=== PATIENT | female | born 1990 | race American Indian/Alaskan Native ===

== ENCOUNTER 2017-11-28 01:42 | Emergency (ER) | payer BC, OTHER ==
[2017-11-28 03:08] VITALS: BP 135/78
[2017-11-28 03:41] LABS: Basophils % (Auto) 0.3 % (0.0-1.8); Eosinophils # (Auto) 0.1 K/mm3 (0.0-0.4); Eosinophils % (Auto) 1.1 % (0.0-4.3); Hematocrit 40.5 % (30.3-42.9); Lymphocytes # (Auto) 2.8 K/mm3 (1.2-5.4); Lymphocytes % (Auto) 33.7 % (13.4-35.0); Mean Corpuscular HGB Conc 35 % (30-34); Mean Corpuscular Hemoglobin 30 pg (28-32); Mean Corpuscular Volume 86 fl (79-97); Monocytes # (Auto) 1.1 K/mm3 (0.0-0.8); Platelet Count 232 K/mm3 (140-440); Red Blood Count 4.69 M/mm3 (3.65-5.03); Red Cell Distribution Width 13.8 % (13.2-15.2)
[2017-11-28 04:01] LABS: BUN/Creatinine Ratio 15; Blood Urea Nitrogen 9 mg/dL (7-17); Calcium 8.6 mg/dL (8.4-10.2); Hemolysis Index 13
[2017-11-28 04:10] LABS: Free T4 (Free Thyroxine) 0.85 ng/dL (0.76-1.46)
--- NOTE | 2017-11-28 06:57 | Emergency Department Report ---
ED Anxiety HPI - General Chief Complaint: Anxiety Stated Complaint: RACING HEARTC Time Seen by Provider: 11/28/17 06:48 Source: patient Mode of arrival: Ambulatory - History of Present Illness Initial Comments: Patient is 27 years old female with no significant past medical history except for an anxiety and panic attack. Patient stated that she woke up this morning with her heart racing and feeling of generalized numbness. Patient stated this is happened to her several times since her mother . She did not seek any treatment for that before. Patient stated that her symptoms completely resolved now. Patient denied any focal weakness, numbness or tingling sensation. No bowel or bladder incontinence. No headache. MD Complaint: anxiety, heart racing - Related Data Home Medications: Home Medications Medication Instructions Recorded Confirmed Last Taken Blisovi 24 Fe Tablet 07/24/16 07/24/16 Previous Rx's Medication Instructions Recorded Last Taken Type Magnesium Oxide [Magnesium] 400 mg PO QDAY #30 tablet 03/07/16 07/24/16 Rx ALPRAZolam [Xanax TAB] 0.5 mg PO TID PRN #14 tab 07/25/16 Unknown Rx Allergies/Adverse Reactions: Allergies Allergy/AdvReac Type Severity Reaction Status Date / Time No Known Allergies Allergy Unverified 09/25/13 10:57 ED Review of Systems ROS: Stated complaint: RACING HEARTC Other details as noted in HPI Comment: All other systems reviewed and negative Respiratory: denies: cough, shortness of breath Cardiovascular: chest pain (resolved), palpitations ED Past Medical Hx - Past Medical History Previous Medical History?: Yes Hx Hypertension: Yes (prehypertensive) Hx Psychiatric Treatment: (anxiety) Additional medical history: enlarged tonsils, Heart arrhythmia, - Surgical History Past Surgical History?: Yes Hx Cholecystectomy: Yes (2017) - Social History Smoking Status: Never Smoker Substance Use Type: Alcohol - Medications Home Medications: Home Medications Medication Instructions Recorded Confirmed Last Taken Type Magnesium Oxide [Magnesium] 400 mg PO QDAY #30 tablet 03/07/16 07/24/16 Rx Blisovi 24 Fe Tablet 07/24/16 07/24/16 History ALPRAZolam [Xanax TAB] 0.5 mg PO TID PRN #14 tab 07/25/16 Unknown Rx ED Physical Exam - General Limitations: No Limitations General appearance: alert, in no apparent distress - Head Head exam: Present: atraumatic, normocephalic - Eye Eye exam: Present: normal appearance - ENT ENT exam: Present: normal exam, normal orophraynx, mucous membranes moist - Neck Neck exam: Present: normal inspection, full ROM. Absent: tenderness, meningismus, lymphadenopathy, thyromegaly - Respiratory Respiratory exam: Present: normal lung sounds bilaterally. Absent: respiratory distress, wheezes, rales, rhonchi, stridor, accessory muscle use, decreased breath sounds, prolonged expiratory - Cardiovascular Cardiovascular Exam: Present: regular rate, normal rhythm, normal heart sounds - GI/Abdominal GI/Abdominal exam: Present: soft, normal bowel sounds. Absent: distended, tenderness, guarding, rebound, rigid, organomegaly, mass, bruit, pulsatile mass - Extremities Exam Extremities exam: Present: normal inspection, full ROM, normal capillary refill - Back Exam Back exam: Present: normal inspection, full ROM. Absent: tenderness, CVA tenderness (R), CVA tenderness (L), muscle spasm, paraspinal tenderness - Neurological Exam Neurological exam: Present: alert, oriented X3, CN II-XII intact, normal gait - Skin Skin exam: Present: warm, intact, normal color ED Course Vital Signs 11/28/17 11/28/17 02:40 06:37 Temperature 97.8 F Pulse Rate 99 H Respiratory 16 20 Rate Blood Pressure 135/78 O2 Sat by Pulse 100 98 Oximetry ED Medical Decision Making - Lab Data Result diagrams: 11/28/17 03:30 11/28/17 03:30 - EKG Data -: EKG Interpreted by Nd EKG shows normal: sinus rhythm Rate: normal - EKG Data Interpretation: no acute changes - Medical Decision Making I advised the patient follow up with her primary care physician for possible treatment for panic attack and inferior to a psychologist. Critical care attestation.: If time is entered above; I have spent that time in minutes in the direct care of this critically ill patient, excluding procedure time. ED Disposition Clinical Impression: Panic attack, Palpitations Disposition: DC-01 TO HOME OR SELFCARE Is pt being admited?: No Condition: Stable Instructions: Anxiety (ED) Referrals: JULIENNE GALLEGO MD [Primary Care Provider] - 3-5 Days
== END 2017-11-28 07:18 | disposition home or self-care (01) ==
LOC: ED 01:42
DX: F41.0 Panic disorder [episodic paroxysmal anxiety] (principal); R00.2 Palpitations; I10 Essential (primary) hypertension
CPT/HCPCS: 36415; 80048; 84439; 84443; 84484; 85025

== ENCOUNTER 2019-06-06 15:39 | Emergency (ER) | payer BC ==
[2019-06-06] MEDS ORDERED: ASPIRIN 325 MG TAB PO ONE (16:53)
[2019-06-06 18:00] LABS: Basophils % (Auto) 0.3 % (0.0-1.8); Eosinophils # (Auto) 0.1 K/mm3 (0.0-0.4); Hematocrit 43.3 % (30.3-42.9); Hemoglobin 14.5 gm/dl (10.1-14.3); Lymphocytes # (Auto) 3.1 K/mm3 (1.2-5.4); Lymphocytes % (Auto) 33.9 % (13.4-35.0); Mean Corpuscular HGB Conc 33 % (30-34); Mean Corpuscular Volume 87 fl (79-97); Monocytes # (Auto) 0.9 K/mm3 (0.0-0.8); Monocytes % (Auto) 10.4 % (0.0-7.3); Platelet Count 267 K/mm3 (140-440); Red Cell Distribution Width 15.2 % (13.2-15.2)
[2019-06-06 18:21] LABS: BUN/Creatinine Ratio 16; Blood Urea Nitrogen 11 mg/dL (7-17); Hemolysis Index 16
[2019-06-06 19:03] VITALS: BP 137/80
--- NOTE | 2019-06-06 20:10 | Emergency Department Report ---
ED Chest Pain HPI - General Chief Complaint: Arrhythmia/Palpitations Stated Complaint: HEART RATE FAST Time Seen by Provider: 06/06/19 19:04 Source: patient Mode of arrival: Ambulatory Limitations: No Limitations - History of Present Illness Initial Comments: Mr. Wilkins is a very pleasant 28-year-old female with history of obesity, hypertension, was ends with palpitations. She feels as if her heart pulses for "drops" the sensation lasts 1 second. It occurs at rest. She denies oral contraceptive use, travel or leg pain. No syncope. Had brief moment of chest tightness yesterday. MD Complaint: other (irregular heartbeat) -: Gradual, days(s) (1) Onset: during rest Pain Location: other (no current chest pain) Severity scale (0 -10): 0 Quality: tightness (did have chest tightness yesterday) Consistency: intermittent Improves With: nothing Worsens With: nothing - Related Data Home Medications Medication Instructions Recorded Confirmed Last Taken Blisovi 24 Fe Tablet 07/24/16 07/24/16 Previous Rx's Medication Instructions Recorded Last Taken Type Magnesium Oxide [Magnesium] 400 mg PO QDAY #30 tablet 03/07/16 07/24/16 Rx ALPRAZolam [Xanax TAB] 0.5 mg PO TID PRN #14 tab 07/25/16 Unknown Rx Chlorthalidone 25 mg PO QDAY #30 tablet 07/04/18 Unknown Rx Allergies Allergy/AdvReac Type Severity Reaction Status Date / Time No Known Allergies Allergy Verified 07/04/18 10:12 Heart Score - HEART Score History: Slightly suspicious EKG: Normal Age: < 45 Risk factors: No known risk factors Troponin: < normal limit HEART Score: 0 ED Review of Systems ROS: Stated complaint: HEART RATE FAST Other details as noted in HPI Comment: All other systems reviewed and negative Constitutional: denies: fever, malaise Respiratory: denies: cough, shortness of breath Cardiovascular: chest pain, palpitations Musculoskeletal: denies: back pain ED Past Medical Hx - Past Medical History Previous Medical History?: Yes Hx Hypertension: Yes Hx Psychiatric Treatment: (anxiety) Additional medical history: enlarged tonsils, Heart arrhythmia, - Surgical History Past Surgical History?: Yes Hx Cholecystectomy: Yes (2016) - Family History Family history: hypertension - Social History Smoking Status: Never Smoker Substance Use Type: None - Medications Home Medications: Home Medications Medication Instructions Recorded Confirmed Last Taken Type Magnesium Oxide [Magnesium] 400 mg PO QDAY #30 tablet 03/07/16 07/24/16 Rx Blisovi 24 Fe Tablet 07/24/16 07/24/16 History ALPRAZolam [Xanax TAB] 0.5 mg PO TID PRN #14 tab 07/25/16 Unknown Rx Chlorthalidone 25 mg PO QDAY #30 tablet 07/04/18 Unknown Rx ED Physical Exam - General Limitations: No Limitations General appearance: alert, in no apparent distress - Head Head exam: Present: atraumatic, normocephalic - Eye Eye exam: Present: normal appearance - ENT ENT exam: Present: mucous membranes moist - Neck Neck exam: Present: normal inspection, full ROM - Respiratory Respiratory exam: Present: normal lung sounds bilaterally. Absent: respiratory distress, wheezes, rales, rhonchi - Cardiovascular Cardiovascular Exam: Present: regular rate, normal rhythm, normal heart sounds. Absent: systolic murmur, diastolic murmur, rubs, gallop - GI/Abdominal GI/Abdominal exam: Present: soft, normal bowel sounds. Absent: distended, tenderness, guarding, rebound - Extremities Exam Extremities exam: Present: normal inspection - Neurological Exam Neurological exam: Present: alert, oriented X3 - Psychiatric Psychiatric exam: Present: normal affect, normal mood - Skin Skin exam: Present: warm, dry, intact, normal color. Absent: rash ED Course Vital Signs 06/06/19 06/06/19 06/06/19 16:51 18:59 19:02 Temperature 98.8 F Pulse Rate 131 H 94 H Respiratory 18 18 20 Rate Blood Pressure 161/88 Blood Pressure 137/80 [Right] O2 Sat by Pulse 100 97 Oximetry ED Medical Decision Making - Lab Data Result diagrams: 06/06/19 17:09 06/06/19 17:09 - EKG Data 06/06/19 20:10 EKG is unchanged from 07/04/2018 Sinus tachycardia seen on previous EKG as well as today. Today EKG reveals sinus tachycardia rate 105 beats a minute normal axis normal intervals nonspecific T wave pattern poorr R progression in the anterior leads. - Radiology Data Radiology results: report reviewed Chest radiograph one view portable: My personal interpretation: Normal cardiac silhouette, no infiltratesignificant pulmonary edema no atelectasis normal chest radiography - Medical Decision Making Miss Wilkins is a 28-year-old female with history of hypertension anxiety and obesity who presents with palpitations. 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 I did not see evidence of arrhythmia or ectopy. Differential diagnosis includes: Symptomology related to valvular disease such as mitral valve prolapse, ectopy such as PVCs, atrial fibrillation, GERD, While in the room heart rate 89 beats a minute. Essentially PERC negative for PE. D-dimer also within the normal limits. Troponin 2 negative. Pericarditis pneumonia congestive heart failure have been ruled out during this ED visit as well as acute coronary syndrome. She was given reassurance. I have arranged for outpatient cardiology referral. She understands return precautions. Critical care attestation.: If time is entered above; I have spent that time in minutes in the direct care of this critically ill patient, excluding procedure time. ED Disposition Clinical Impression: Palpitations, Chest pain Disposition: DC-01 TO HOME OR SELFCARE Is pt being admited?: No Does the pt Need Aspirin: No Condition: Stable Instructions: Palpitations (ED) Referrals: MAZIN FRAIRE MD [Staff Physician] - 3-5 Days Forms: Work/School Release Form(ED)
--- NOTE | 2019-06-06 20:28 | XRay Report ---
CHEST 1 VIEW INDICATION: Chest Pain UPT. COMPARISON: 07/04/2018. FINDINGS: Support devices: None. Heart: Within normal limits. Lungs/Pleura: No acute air space or interstitial disease. Additional findings: None. IMPRESSION: No acute abnormality. Signer Name: Jovany Reagan MD Signed: 06/06/2019 8:24 PM Workstation Name: [id number]
== END 2019-06-06 20:31 | disposition home or self-care (01) ==
LOC: ED 15:39
DX: R00.2 Palpitations (principal); R07.89 Other chest pain; F41.9 Anxiety disorder, unspecified; I10 Essential (primary) hypertension; Z90.49 Acquired absence of other specified parts of digestive tract; Z79.899 Other long term (current) drug therapy; Z98.890 Other specified postprocedural states
CPT/HCPCS: 36415; 71045; 80048; 84484; 84703; 85025; 85379; 93005; 93010

== ENCOUNTER 2019-12-26 20:12 | Emergency (ER) | payer BC ==
[2019-12-26] MEDS ORDERED: dexAMETHasone 20 MG/5 ML VIAL IM ONE (21:21)
[2019-12-26 21:22] VITALS: BP 153/105
--- NOTE | 2019-12-26 21:26 | Emergency Department Report ---
ED General Adult HPI - General Chief complaint: Sore Throat Stated complaint: SWOLLEN TONSILS Time Seen by Provider: 12/26/19 21:18 Source: patient Mode of arrival: Ambulatory Limitations: No Limitations - History of Present Illness Initial comments: 29-year-old -[place] female patient with history of hypertension presents with complaints of throat pain x2 days. Patient states history of recurrent strep pharyngitis, last infection occurring 09/2019. She states she is currently following with an ENT specialist and is being considered for a t onsillectomy. Patient reports she was last treated with amoxicillin and Decadron in September. She rates her current pain is 8/10 in severity and states it worsens with swallowing. Patient also states she did try taking prednisone 40 mg at home prior to arrival, however her symptoms were not relieved with this. She denies any difficulty opening her jaw, drooling, or fever. - Related Data Home Medications Medication Instructions Recorded Confirmed Last Taken Blisovi 24 Fe Tablet 07/24/16 07/24/16 Previous Rx's Medication Instructions Recorded Last Taken Type Magnesium Oxide [Magnesium] 400 mg PO QDAY #30 tablet 03/07/16 07/24/16 Rx ALPRAZolam [Xanax TAB] 0.5 mg PO TID PRN #14 tab 07/25/16 Unknown Rx Chlorthalidone 25 mg PO QDAY #30 tablet 07/04/18 Unknown Rx Amoxicillin/Potassium Clav 1 each PO BID 10 Days #20 tablet 12/26/19 Unknown Rx [Augmentin 875-125 Tablet] Fluconazole (Nf) [Diflucan TAB] 150 mg PO ONCE PRN 1 Days #1 tablet 12/26/19 Unknown Rx Allergies Allergy/AdvReac Type Severity Reaction Status Date / Time No Known Allergies Allergy Verified 07/04/18 10:12 ED Review of Systems ROS: Stated complaint: SWOLLEN TONSILS Other details as noted in HPI Constitutional: denies: chills, fever ENT: throat pain Respiratory: denies: cough, shortness of breath Cardiovascular: denies: chest pain, palpitations Gastrointestinal: denies: abdominal pain, nausea, vomiting Skin: denies: rash, lesions ED Past Medical Hx - Past Medical History Previous Medical History?: Yes Hx Hypertension: Yes Hx Psychiatric Treatment: (anxiety) Additional medical history: enlarged tonsils, Heart arrhythmia, - Surgical History Past Surgical History?: Yes Hx Cholecystectomy: Yes (2016) - Social History Smoking Status: Never Smoker Substance Use Type: None - Medications Home Medications: Home Medications Medication Instructions Recorded Confirmed Last Taken Type Magnesium Oxide [Magnesium] 400 mg PO QDAY #30 tablet 03/07/16 07/24/16 Rx Blisovi 24 Fe Tablet 07/24/16 07/24/16 History ALPRAZolam [Xanax TAB] 0.5 mg PO TID PRN #14 tab 07/25/16 Unknown Rx Chlorthalidone 25 mg PO QDAY #30 tablet 07/04/18 Unknown Rx Amoxicillin/Potassium Clav 1 each PO BID 10 Days #20 tablet 12/26/19 Unknown Rx [Augmentin 875-125 Tablet] Fluconazole (Nf) [Diflucan TAB] 150 mg PO ONCE PRN 1 Days #1 tablet 12/26/19 Unknown Rx ED Physical Exam - General Limitations: No Limitations General appearance: alert, in no apparent distress, obese - Head Head exam: Present: atraumatic, normocephalic - Eye Eye exam: Absent: scleral icterus - Expanded ENT Exam Expanded Mouth exam: Present: tongue normal. Absent: drooling, trismus, muffled voice Throat exam: Positive: tonsillar erythema, tonsillomegaly (Significant, bilaterally). Negative: R peritonsillar mass, L peritonsillar mass - Neck Neck exam: Present: full ROM, lymphadenopathy (Minimal anterior cervical lym phadenopathy noted). Absent: tenderness - Respiratory Respiratory exam: Present: normal lung sounds bilaterally. Absent: respiratory distress - Cardiovascular Cardiovascular Exam: Present: regular rate, normal rhythm. Absent: systolic murmur, diastolic murmur, rubs, gallop - GI/Abdominal GI/Abdominal exam: Present: soft, normal bowel sounds - Neurological Exam Neurological exam: Present: alert, oriented X3 - Psychiatric Psychiatric exam: Present: normal affect, normal mood - Skin Skin exam: Present: warm, dry, intact, normal color. Absent: rash, cyanosis ED Medical Decision Making - Medical Decision Making Patient here with sore throat for the past 2 days. She has a history of recurrent strep pharyngitis and is currently following with an ENT provider. She was last treated with amoxicillin for strep pharyngitis in September of this year. On exam, patient has significant erythema and tonsillomegaly bilaterally without trismus or drooling. Decadron given here in ED. Patient to discharge home with Augmentin. Recommend follow-up with her ENT provider within 7 days. Strict return precautions were discussed in detail with patient who verbalizes understanding. Critical care attestation.: If time is entered above; I have spent that time in minutes in the direct care of this critically ill patient, excluding procedure time. ED Disposition Clinical Impression: Bacterial pharyngitis Disposition: - TO HOME OR SELFCARE Is pt being admited?: No Condition: Stable Instructions: Strep Throat (ED) Prescriptions: Amoxicillin/Potassium Clav [Augmentin 875-125 Tablet] 1 each PO BID 10 Days #20 tablet Fluconazole (Nf) [Diflucan TAB] 150 mg PO ONCE PRN 1 Days #1 tablet PRN Reason: yeast infection Referrals: PRIMARY CARE, [Primary Care Provider] - 3-5 Days
== END 2019-12-26 21:34 | disposition home or self-care (01) ==
LOC: ED 20:12
DX: J02.8 Acute pharyngitis due to other specified organisms (principal); B96.89 Other specified bacterial agents as the cause of diseases classified elsewhere; I10 Essential (primary) hypertension; F41.9 Anxiety disorder, unspecified; Z90.49 Acquired absence of other specified parts of digestive tract; Z79.2 Long term (current) use of antibiotics; Z79.899 Other long term (current) drug therapy
CPT/HCPCS: 96372; 99282; J1100

== ENCOUNTER 2019-12-27 08:46 | Emergency (ER) | payer BC ==
[2019-12-27 08:54] VITALS: BP 144/81
--- NOTE | 2019-12-27 10:39 | Event Note ---
ED Screening Note ED Screening Note: PMH HTN-lopressor PSH thelma PCP Jorge virgen in triage nkda co sore throat/no fever/hoarseness/ no cough This initial assessment/diagnostic orders/clinical plan/treatment(s) is/are subject to change based on patients health status, clinical progression and re- assessment by fellow clinical providers in the ED. Further treatment and workup at subsequent clinical providers discretion. Patient/guardian urged not to elope from the ED as their condition may be serious if not clinically assessed and man aged. Initial orders include: ACC Eval
[2019-12-27] MEDS ORDERED: KETOROLAC 30 MG/1 ML INJ IV ONE (11:17)
[2019-12-27] MEDS ORDERED: SODIUM CHLORIDE 0.9% 1000 ML 1,000 ML IV ONE (11:18)
--- NOTE | 2019-12-27 11:19 | Emergency Department Report ---
ED ENT HPI - General Chief complaint: Sore Throat Stated complaint: SORE THROAT Time Seen by Provider: 12/27/19 10:37 Source: patient Mode of arrival: Ambulatory Limitations: No Limitations - History of Present Illness Initial comments: 29-year-old female presents to the ER today complaining of sore throat and difficulty swallowing. Patient states that earlier yesterday she started with a sore throat, thought it would get better with salt water gargles but was getting worse and so came here to the ER. She states she was diagnosed with pharyngitis and prescribed Augmentin. She states that when she got to the pharmacy they told her that it was not going to be ready until today. Patient states that she came to the ER today because the swelling to her tonsils are worse, she is now having difficulty swallowing and difficulty talking. She reports no drooling, or difficulty breathing. She denies any associated fever or chills. She reports no other symptoms at this time. MD complaint: sore throat, difficulty swallowing -: Sudden (yesterday ) - Related Data Home Medications Medication Instructions Recorded Confirmed Last Taken Blisovi 24 Fe Tablet 07/24/16 07/24/16 Previous Rx's Medication Instructions Recorded Last Taken Type Magnesium Oxide [Magnesium] 400 mg PO QDAY #30 tablet 03/07/16 07/24/16 Rx ALPRAZolam [Xanax TAB] 0.5 mg PO TID PRN #14 tab 07/25/16 Unknown Rx Chlorthalidone 25 mg PO QDAY #30 tablet 07/04/18 Unknown Rx Amoxicillin/Potassium Clav 1 each PO BID 10 Days #20 tablet 12/26/19 Unknown Rx [Augmentin 875-125 Tablet] Fluconazole (Nf) [Diflucan TAB] 150 mg PO ONCE PRN 1 Days #1 tablet 12/26/19 Unknown Rx Acetamin/Codeine 120-12Mg/5 ml 5 ml PO TID PRN #120 oz 12/27/19 Unknown Rx [Tylenol/Codeine] methylPREDNISolone [Medrol 4MG 4 mg PO DAILY #1 tab.ds.pk 12/27/19 Unknown Rx DOSEPAK (21 tabs)] Allergies Allergy/AdvReac Type Severity Reaction Status Date / Time No Known Allergies Allergy Verified 07/04/18 10:12 ED Dental HPI - General Chief complaint: Sore Throat Stated complaint: SORE THROAT Time Seen by Provider: 12/27/19 10:37 Source: patient Mode of arrival: Ambulatory Limitations: No Limitations - Related Data Home Medications Medication Instructions Recorded Confirmed Last Taken Blisovi 24 Fe Tablet 07/24/16 07/24/16 Previous Rx's Medication Instructions Recorded Last Taken Type Magnesium Oxide [Magnesium] 400 mg PO QDAY #30 tablet 03/07/16 07/24/16 Rx ALPRAZolam [Xanax TAB] 0.5 mg PO TID PRN #14 tab 07/25/16 Unknown Rx Chlorthalidone 25 mg PO QDAY #30 tablet 07/04/18 Unknown Rx Amoxicillin/Potassium Clav 1 each PO BID 10 Days #20 tablet 12/26/19 Unknown Rx [Augmentin 875-125 Tablet] Fluconazole (Nf) [Diflucan TAB] 150 mg PO ONCE PRN 1 Days #1 tablet 12/26/19 Unknown Rx Acetamin/Codeine 120-12Mg/5 ml 5 ml PO TID PRN #120 oz 12/27/19 Unknown Rx [Tylenol/Codeine] methylPREDNISolone [Medrol 4MG 4 mg PO DAILY #1 tab.ds.pk 12/27/19 Unknown Rx DOSEPAK (21 tabs)] Allergies Allergy/AdvReac Type Severity Reaction Status Date / Time No Known Allergies Allergy Verified 07/04/18 10:12 ED Review of Systems ROS: Stated complaint: SORE THROAT Other details as noted in HPI Constitutional: denies: chills, fever ENT: throat pain, other (Difficulty swallowing, difficulty talking) Respiratory: denies: cough, shortness of breath, wheezing Cardiovascular: denies: chest pain, palpitations Gastrointestinal: denies: abdominal pain, nausea, diarrhea Genitourinary: denies: urgency, dysuria, discharge Musculoskeletal: denies: back pain, joint swelling, arthralgia Skin: denies: rash, lesions Neurological: denies: headache, weakness, paresthesias Psychiatric: denies: anxiety, depression ED Past Medical Hx - Past Medical History Previous Medical History?: Yes Hx Hypertension: Yes Hx Psychiatric Treatment: (anxiety) Additional medical history: enlarged tonsils, Heart arrhythmia, - Surgical History Past Surgical History?: Yes Hx Cholecystectomy: Yes (2016) - Social History Smoking Status: Never Smoker Substance Use Type: None - Medications Home Medications: Home Medications Medication Instructions Recorded Confirmed Last Taken Type Magnesium Oxide [Magnesium] 400 mg PO QDAY #30 tablet 03/07/16 07/24/16 Rx Blisovi 24 Fe Tablet 07/24/16 07/24/16 History ALPRAZolam [Xanax TAB] 0.5 mg PO TID PRN #14 tab 07/25/16 Unknown Rx Chlorthalidone 25 mg PO QDAY #30 tablet 07/04/18 Unknown Rx Amoxicillin/Potassium Clav 1 each PO BID 10 Days #20 tablet 12/26/19 Unknown Rx [Augmentin 875-125 Tablet] Fluconazole (Nf) [Diflucan TAB] 150 mg PO ONCE PRN 1 Days #1 tablet 12/26/19 Unknown Rx Acetamin/Codeine 120-12Mg/5 ml 5 ml PO TID PRN #120 oz 12/27/19 Unknown Rx [Tylenol/Codeine] methylPREDNISolone [Medrol 4MG 4 mg PO DAILY #1 tab.ds.pk 12/27/19 Unknown Rx DOSEPAK (21 tabs)] ED Physical Exam - General Limitations: No Limitations General appearance: alert, anxious, in distress (Mild) - Head Head exam: Present: atraumatic, normocephalic, normal inspection - Eye Eye exam: Present: normal appearance, PERRL, EOMI Pupils: Present: normal accommodation - ENT ENT exam: Present: mucous membranes moist, other (Severe swelling noted to both tonsils to the point they are touching each other. Both are equally swollen. No obvious peritonsillar abscess noted. No uvular deviation or swelling. Exudates noted to both tonsils. Patient is able to tolerate her secretions but with pain when she swallows. There is no drooling or trismus. mild hot potatoe voice) - Neck Neck exam: Present: normal inspection, full ROM, lymphadenopathy (Anterior cervical lymphadenopathy). Absent: meningismus - Respiratory Respiratory exam: Present: normal lung sounds bilaterally. Absent: respiratory distress - Cardiovascular Cardiovascular Exam: Present: normal rhythm, tachycardia - Neurological Exam Neurological exam: Present: alert, oriented X3 - Psychiatric Psychiatric exam: Present: anxious, other (Tearful) - Skin Skin exam: Present: intact ED Course Vital Signs 12/27/19 08:49 Temperature 97.7 F Pulse Rate 117 H Respiratory 18 Rate Blood Pressure 144/81 O2 Sat by Pulse 99 Oximetry - Reevaluation(s) Reevaluation #1: 12/27/19 14:17 Patient resting comfortabl, she appears to be feeling better after meds. She reports some improvement of her symptoms after meds. She is not in any respiratory distress. she is controlling her secretions well. No trismus or drooling. Labs/CT scan reviewed. Pt strep positive. Bicillin LA IM given in the ER. CT show mild to moderate enlarged tonsils but otherwise no peritonsillar abscess or anything else acute. Discussed lab results with patient. No further work-up, admission no emergent consult indicated at this time. Patient stable at this time for discharge. ED Medical Decision Making - Lab Data Result diagrams: 12/27/19 11:58 12/27/19 11:58 - Radiology Data Radiology results: report reviewed [facility] [address] [place] [address] Cat Scan Report Signed Patient: UMM HAGAN MR#: [id number] : 1990 Acct:[id number] Age/Sex: 29 / F ADM Date: 12/27/19 Loc: ED Attending Dr: Ordering Physician: JEVON VAZQUEZ Date of Service: 12/27/19 Procedure(s): CT neck w con Accession Number(s): [id number] cc: JEVON VAZQUEZ CT NECK WITH CONTRAST HISTORY: Severe tonsillar pain and swelling COMPARISON: None. TECHNIQUE: Routine CT of the neck is performed following 100 cc of Omnipaque 300. Sagittal and coronal reformatted images. All CT scans at this location are performed using CT dose reduction for ALARA by means of automated exposure control. FINDINGS: There is mild to moderate enlargement of the adenoid tonsils and palatine tonsils. No peritonsillar abscess is appreciated on CT with contrast. The prevertebral soft tissues are normal thickness. There are a few mildly enlarged jugular lymph nodes bilaterally. The largest lymph node measures 1.7 cm on the left side. No necrotic lymph nodes. These are likely reactive in nature. Laryngeal structures are unremarkable. The salivary glands are symmetric and normal attenuation. The vascular structures are widely patent. Normal thyroid gland. The visualized skull base and brain are within normal limits. IMPRESSION: Mild to moderate tonsillar enlargement but no evidence for peritonsillar abscess. Signer Name: Deon Clancy Jr, MD Signed: 12/27/2019 1:53 PM Workstation Name: [id number] Transcribed By: TTR Dictated By: DEON CLANCY JR, MD Electronically Authenticated By: DEON CLANCY JR, MD Signed Date/Time: 12/27/19 1353 DD/ 1348 TD/TT: Critical care attestation.: If time is entered above; I have spent that time in minutes in the direct care of this critically ill patient, excluding procedure time. ED Disposition Clinical Impression: Strep pharyngitis Disposition: DC-01 TO HOME OR SELFCARE Is pt being admited?: No Does the pt Need Aspirin: No Condition: Stable Instructions: Strep Throat (ED) Additional Instructions: You do not need to get the Augmentin filled as you were treated with antibiotics here for a strep infection. You can get the Medrol Dosepak filled and start taking that which will help with the swelling. The Tylenol 3 you can take if you need anything for pain. I recommend lots of fluids. Close follow-up with your primary care doctor. Return to the ER if worse. Prescriptions: methylPREDNISolone [Medrol 4MG DOSEPAK (21 tabs)] 4 mg PO DAILY #1 tab.ds.pk Acetamin/Codeine 120-12Mg/5 ml [Tylenol/Codeine] 5 ml PO TID PRN #120 oz PRN Reason: Pain Referrals: SAMIRA RAWLS MD [Staff Physician] - 3-5 Days Forms: Work/School Release Form(ED) Time of Disposition: 14:11
[2019-12-27] MEDS ORDERED: dexAMETHasone 20 MG in SODIUM CHLORIDE 0.9% 50 ML IV ONE (12:00)
[2019-12-27 12:22] LABS: Basophils % (Auto) 0.1 % (0.0-1.8); Hematocrit 42.5 % (30.3-42.9); Hemoglobin 14.2 gm/dl (10.1-14.3); Lymphocytes # (Auto) 1.1 K/mm3 (1.2-5.4); Lymphocytes % (Auto) 5.6 % (13.4-35.0); Mean Corpuscular HGB Conc 34 % (30-34); Mean Corpuscular Volume 90 fl (79-97); Monocytes # (Auto) 1.5 K/mm3 (0.0-0.8); Monocytes % (Auto) 7.4 % (0.0-7.3); Platelet Count 258 K/mm3 (140-440); Red Blood Count 4.75 M/mm3 (3.65-5.03); Red Cell Distribution Width 15.4 % (13.2-15.2)
[2019-12-27 12:57] LABS: BUN/Creatinine Ratio 18; Blood Urea Nitrogen 11 mg/dL (7-17); Hemolysis Index 1
[2019-12-27] MEDS ORDERED: PENICILLIN G BENZATHINE 1.2 MILLION UNIT/2 ML INJ IM ONE (12:59)
--- NOTE | 2019-12-27 13:57 | Cat Scan Report ---
CT NECK WITH CONTRAST HISTORY: Severe tonsillar pain and swelling COMPARISON: None. TECHNIQUE: Routine CT of the neck is performed following 100 cc of Omnipaque 300. Sagittal and estes l reformatted images. All CT scans at this location are performed using CT dose reduction for ALARA b y means of automated exposure control. FINDINGS: There is mild to moderate enlargement of the adenoid tonsils and palatine tonsils. No peritonsillar a bscess is appreciated on CT with contrast. The prevertebral soft tissues are normal thickness. There are a few mildly enlarged jugular lymph nodes bilaterally. The largest lymph node measures 1.7 cm on the left side. No necrotic lymph nodes. These are likely reactive in nature. Laryngeal structures are unremarkable. The salivary glands are symmetric and normal attenuation. The vascular structures are widely patent. Normal thyroid gland. The visualized skull base and brain are within normal limits. IMPRESSION: Mild to moderate tonsillar enlargement but no evidence for peritonsillar abscess. Signer Name: Deon Clancy Jr, MD Signed: 12/27/2019 1:53 PM Workstation Name: [id number]
== END 2019-12-27 14:19 | disposition home or self-care (01) ==
LOC: ED 08:46
DX: J02.0 Streptococcal pharyngitis (principal); I10 Essential (primary) hypertension; F41.9 Anxiety disorder, unspecified; Z90.49 Acquired absence of other specified parts of digestive tract; Z79.2 Long term (current) use of antibiotics; Z79.899 Other long term (current) drug therapy
CPT/HCPCS: 36415; 70491; 80048; 85025; 86308; 87430; 96365; 96372; 96375; 99284; J0561; J1100; J1885; J7030; Q9967

== ENCOUNTER 2019-12-30 07:38 | Emergency (ER) | payer BC ==
[2019-12-30] MEDS ORDERED: KETOROLAC 30 MG/1 ML INJ IV ONE (09:09)
[2019-12-30] MEDS ORDERED: BUTALB/ACETAMINOPHEN/CAFFEINE TAB PO ONE (09:09)
[2019-12-30] MEDS ORDERED: METOCLOPRAMIDE 10 MG/2 ML INJ IV ONE (09:10)
--- NOTE | 2019-12-30 09:13 | Emergency Department Report ---
ED Headache HPI - General Chief Complaint: Headache Stated Complaint: migraine Time Seen by Provider: 12/30/19 08:53 Source: patient - History of Present Illness Initial Comments: This is a 29-year-old female who presents the ED complaining of right-sided frontal temporal headache x3 days. Patient states patient began 3 days ago after she was treated here for strep pharyngitis diabetes with some Toradol prednisone and antibiotics. Patient states that headache began that day when she got home and has not resolved. Patient states she is taking [id number] medications such as Sudafed and Goody powder with no relief. Patient denies any injury, trauma. Patient admits some photosensitivity and states that movement makes the headache worse. She denies fever/chills/nausea vomiting/dizziness Quality: moderate, achy, throbbing Head Injury Location: frontal, temporal Associated Symptoms: denies: confusion, loss of consciousness, nausea/vomiting, nasal congestion, nasal drainage, stiff neck Allergies/Adverse Reactions: Allergies No Known Allergies Allergy (Verified 07/04/18 10:12) Home Medications: Ambulatory Orders Magnesium Oxide [Magnesium] 400 mg PO QDAY #30 tablet 03/07/16 Blisovi 24 Fe Tablet 07/24/16 ALPRAZolam [Xanax TAB] 0.5 mg PO TID PRN #14 tab 07/25/16 Chlorthalidone 25 mg PO QDAY #30 tablet 07/04/18 Amoxicillin/Potassium Clav [Augmentin 875-125 Tablet] 1 each PO BID 10 Days #20 tablet 12/26/19 Fluconazole (Nf) [Diflucan TAB] 150 mg PO ONCE PRN 1 Days #1 tablet 12/26/19 Acetamin/Codeine 120-12Mg/5 ml [Tylenol/Codeine] 5 ml PO TID PRN #120 oz 12/27/19 methylPREDNISolone [Medrol 4MG DOSEPAK (21 tabs)] 4 mg PO DAILY #1 tab.ds.pk 12/27/19 Butalb/Acetaminophen/Caffeine [Fioricet 50-300-40 mg CAP] 1 cap PO Q6HR PRN #30 cap 12/30/19 Ondansetron HCl [Zofran] 4 mg PO Q8H #20 tablet 12/30/19 diphenhydrAMINE [Benadryl CAP] 25 mg PO Q8HR #20 capsule 12/30/19 ED Review of Systems ROS: Stated complaint: migraine Other details as noted in HPI Comment: All other systems reviewed and negative ED Past Medical Hx - Past Medical History Previous Medical History?: Yes Hx Hypertension: Yes Hx Psychiatric Treatment: (anxiety) Additional medical history: enlarged tonsils, Heart arrhythmia, - Surgical History Past Surgical History?: Yes Hx Cholecystectomy: Yes (2016) - Social History Smoking Status: Current Some Day Smoker Substance Use Type: None - Medications Home Medications: Home Medications Medication Instructions Recorded Confirmed Last Taken Type Magnesium Oxide [Magnesium] 400 mg PO QDAY #30 tablet 03/07/16 07/24/16 Rx Blisovi 24 Fe Tablet 07/24/16 07/24/16 History ALPRAZolam [Xanax TAB] 0.5 mg PO TID PRN #14 tab 07/25/16 Unknown Rx Chlorthalidone 25 mg PO QDAY #30 tablet 07/04/18 Unknown Rx Amoxicillin/Potassium Clav 1 each PO BID 10 Days #20 tablet 12/26/19 Unknown Rx [Augmentin 875-125 Tablet] Fluconazole (Nf) [Diflucan TAB] 150 mg PO ONCE PRN 1 Days #1 tablet 12/26/19 Unknown Rx Acetamin/Codeine 120-12Mg/5 ml 5 ml PO TID PRN #120 oz 12/27/19 Unknown Rx [Tylenol/Codeine] methylPREDNISolone [Medrol 4MG 4 mg PO DAILY #1 tab.ds.pk 12/27/19 Unknown Rx DOSEPAK (21 tabs)] Butalb/Acetaminophen/Caffeine 1 cap PO Q6HR PRN #30 cap 12/30/19 Unknown Rx [Fioricet 50-300-40 mg CAP] Ondansetron HCl [Zofran] 4 mg PO Q8H #20 tablet 12/30/19 Unknown Rx diphenhydrAMINE [Benadryl CAP] 25 mg PO Q8HR #20 capsule 12/30/19 Unknown Rx ED Physical Exam - General Limitations: No Limitations General appearance: alert, in no apparent distress - Head Head exam: Present: atraumatic, normocephalic - Eye Eye exam: Present: normal appearance, PERRL Pupils: Present: normal accommodation - ENT ENT exam: Present: mucous membranes moist - Neck Neck exam: Present: normal inspection, full ROM. Absent: tenderness, lymphadenopathy - Respiratory Respiratory exam: Present: normal lung sounds bilaterally. Absent: respiratory distress - Cardiovascular Cardiovascular Exam: Present: regular rate, normal rhythm. Absent: systolic murmur, diastolic murmur, rubs, gallop - GI/Abdominal GI/Abdominal exam: Present: soft, normal bowel sounds - Extremities Exam Extremities exam: Present: normal inspection - Back Exam Back exam: Present: normal inspection - Neurological Exam Neurological exam: Present: alert, oriented X3, normal gait - Expanded Neurological Exam Expanded Patient oriented to: Present: person, place, time Speech: Present: fluid speech Cranial nerves: EOM's Intact: Normal Cerebellar function: Finger to Nose: Normal Sensory exam: Upper Extremity Light Touch: Normal Motor strength exam: RUE: 5, LUE: 5, RLE: 5, LLE: 5 Best Eye Response (Braulio): (4) open spontaneously Best Motor Response (Braulio): (6) obeys commands Best Verbal Response (Braulio): (5) oriented [place] Total: 15 - Psychiatric Psychiatric exam: Present: normal affect, normal mood - Skin Skin exam: Present: warm, dry, intact, normal color. Absent: rash ED Course Vital Signs 12/30/19 12/30/19 12/30/19 07:39 08:02 09:38 Temperature 97.5 F L Pulse Rate 88 Respiratory 16 18 18 Rate Blood Pressure 115/72 O2 Sat by Pulse 99 98 Oximetry 12/30/19 09:50 Temperature Pulse Rate Respiratory 18 Rate Blood Pressure O2 Sat by Pulse Oximetry ED Medical Decision Making - Medical Decision Making 29-year-old female presents the ED with migraine headache. Patient received Toradol Fioricet, Reglan in ED. Discussed with patient proper rest, increased hydration Discussed with patient we will prescribe migraine medication per patient intake as prescribed. Discussed with patient to follow-up with primary care physician within a week. Neurologist referral given and suggested. Vital signs are normal, patient is in no acute or respiratory distress. Patient had no neurological deficit. Critical care attestation.: If time is entered above; I have spent that time in minutes in the direct care of this critically ill patient, excluding procedure time. ED Disposition Clinical Impression: Headache, Migraine headache without aura Disposition: - TO HOME OR SELFCARE Is pt being admited?: No Does the pt Need Aspirin: No Condition: Stable Instructions: Tension Headache (ED), Migraine Headache (ED) Additional Instructions: Make sure to follow up with the primary care physician as discussed. Take all your medications as you've been prescribed. If you have any worsening symptoms or develop new symptoms please return to ED immediately. Prescriptions: diphenhydrAMINE [Benadryl CAP] 25 mg PO Q8HR #20 capsule Butalb/Acetaminophen/Caffeine [Fioricet 50-300-40 mg CAP] 1 cap PO Q6HR PRN #30 cap PRN Reason: Headache Ondansetron HCl [Zofran] 4 mg PO Q8H #20 tablet Referrals: ALEXEY OVIEDO [Other] - 3-5 Days [facility] [Provider Group] - 3-5 Days [facility] [Provider Group] - 3-5 Days Forms: Work/School Release Form(ED) Time of Disposition: 10:01
[2019-12-30 10:32] VITALS: BP 158/102
== END 2019-12-30 10:27 | disposition home or self-care (01) ==
LOC: ED 07:38
DX: G43.009 Migraine without aura, not intractable, without status migrainosus (principal); I10 Essential (primary) hypertension; F41.9 Anxiety disorder, unspecified; F17.200 Nicotine dependence, unspecified, uncomplicated; Z90.49 Acquired absence of other specified parts of digestive tract; Z79.2 Long term (current) use of antibiotics; Z79.899 Other long term (current) drug therapy
CPT/HCPCS: 96374; 96375; 99283; J1885; J2765

== ENCOUNTER 2020-05-06 22:02 | Inpatient (IN) | payer BC ==
[2020-05-06] MEDS ORDERED: ONDANSETRON 4 MG/2 ML INJ IV ONE (23:46)
[2020-05-06] MEDS ORDERED: SODIUM CHLORIDE 0.9% 1000 ML 1,000 ML IV ONE (23:46)
[2020-05-06] MEDS ORDERED: MORPHINE 4 MG/1 ML INJ IV ONE (23:46)
[2020-05-06] MEDS ORDERED: FAMOTIDINE 20 MG/2 ML INJ IV ONE (23:46)
[2020-05-06 23:50] LABS: Alanine Aminotransferase 19 units/L (7-56); Albumin 4.5 g/dL (3.9-5); Blood Urea Nitrogen 9 mg/dL (7-17); Calcium 9.6 mg/dL (8.4-10.2); Hemolysis Index 16
[2020-05-06 23:51] LABS: BUN/Creatinine Ratio 15
[2020-05-06 23:54] LABS: Hematocrit 44.9 % (30.3-42.9); Mean Corpuscular HGB Conc 33 % (30-34); Mean Corpuscular Volume 88 fl (79-97); Platelet Count 230 K/mm3 (140-440); Red Blood Count 5.13 M/mm3 (3.65-5.03); Red Cell Distribution Width 15.2 % (13.2-15.2)
[2020-05-07 00:01] LABS: Bilirubin,Urine NEG (Negative); Blood,Urine SM (Negative); Color,Urine Yellow (Yellow); Urobilinogen,Urine < 2.0 mg/dL (<2.0)
--- NOTE | 2020-05-07 00:53 | Cat Scan Report ---
CT abdomen pelvis w con INDICATION / CLINICAL INFORMATION: Abdominal pain. TECHNIQUE: Axial CT imaging of abdomen and pelvis was obtained with IV contrast. Coronal and sagittal reformatte d imaging obtained and reviewed. All CT scans at this location are performed using CT dose reduction for ALARA by means of automated exposure control. COMPARISON: CT abdomen/pelvis, 10/28/2012 FINDINGS: CT abdomen with contrast demonstrates normal appearance of the liver, spleen, pancreas, kidneys, and adrenal glands. Prior cholecystectomy. I suspect there are a few nonobstructing calculi within both k idneys, but with IV contrast present, this is unclear. Certainly no hydronephrosis or renal mass is p resent. CT pelvis with contrast demonstrates a dilated and inflamed appendix consistent with acute appendicit is. The appendix is located in the right hemipelvis/adnexa. No evidence of rupture. The remainder of the GI tract is unremarkable. No pelvic mass or additional site of inflammatory changes noted. IUD is present. Visualized lung bases are grossly clear. No significant acute osseous abnormality noted. IMPRESSION: 1. Findings are consistent with acute appendicitis. No evidence of rupture. 2. Suspect bilateral nephrolithiasis. No obstruction. Signer Name: Елена Luu MD Signed: 05/07/2020 12:48 AM Workstation Name: [id number]
[2020-05-07] MEDS ORDERED: PIPERACIL/TAZOBACTA 4.5/NS 100 4.5 GM/100 ML VIAL IV ONE ×2 (00:55→06:40)
--- NOTE | 2020-05-07 01:01 | Emergency Department Report ---
ED Abdominal Pain HPI - General Chief Complaint: Abdominal Pain Stated Complaint: ABDOMINAL PAIN/NAUSEA Source: patient Mode of arrival: Ambulatory Limitations: No Limitations - History of Present Illness Initial Comments: Patient is a 29-year-old -Citizen Of [place] female with a history of hypertension and morbid obesity who presents to the ED with complaint of acute onset persi stent severe diffuse abdominal pain radiating to the right lower quadrant and suprapubic area for the last 3 hours with intractable nausea and vomiting. Patient states that the pain has worsened and is constant sharp and crampy, waxing and waning, but gets worse with nausea and vomiting. Patient denies fever, chills, diarrhea, dysuria, urinary frequency and urgency, vaginal bleeding, vaginal discharge, low back pain, chest pain, shortness of breath, sore throat, syncope or change in vision and constipation. MD Complaint: abdominal pain, other (Nausea and vomiting) -: Sudden, hour(s) (3) Location: diffuse, RLQ, suprapubic Radiation: RLQ Migration to: no migration Severity scale (0 -10): 10 Quality: cramping, aching, sharp Consistency: constant Improves With: nothing Worsens With: vomiting Associated Symptoms: denies other symptoms, nausea, vomiting. denies: diarrhea, fever, chills, constipation, dysuria, hematemesis, hematochezia, melena, hematuria, syncope, other - Related Data LMP Date: 04/29/20 Home Medications Medication Instructions Recorded Confirmed Last Taken Blisovi 24 Fe Tablet 07/24/16 07/24/16 Previous Rx's Medication Instructions Recorded Last Taken Type Magnesium Oxide [Magnesium] 400 mg PO QDAY #30 tablet 03/07/16 07/24/16 Rx ALPRAZolam [Xanax TAB] 0.5 mg PO TID PRN #14 tab 07/25/16 Unknown Rx Chlorthalidone 25 mg PO QDAY #30 tablet 07/04/18 Unknown Rx Amoxicillin/Potassium Clav 1 each PO BID 10 Days #20 tablet 12/26/19 Unknown Rx [Augmentin 875-125 Tablet] Fluconazole (Nf) [Diflucan TAB] 150 mg PO ONCE PRN 1 Days #1 tablet 12/26/19 Unknown Rx Acetamin/Codeine 120-12Mg/5 ml 5 ml PO TID PRN #120 oz 12/27/19 Unknown Rx [Tylenol/Codeine] methylPREDNISolone [Medrol 4MG 4 mg PO DAILY #1 tab.ds.pk 12/27/19 Unknown Rx DOSEPAK (21 tabs)] Butalb/Acetaminophen/Caffeine 1 cap PO Q6HR PRN #30 cap 12/30/19 Unknown Rx [Fioricet 50-300-40 mg CAP] Ondansetron HCl [Zofran] 4 mg PO Q8H #20 tablet 12/30/19 Unknown Rx diphenhydrAMINE [Benadryl CAP] 25 mg PO Q8HR #20 capsule 12/30/19 Unknown Rx Allergies Allergy/AdvReac Type Severity Reaction Status Date / Time No Known Allergies Allergy Verified 07/04/18 10:12 ED Review of Systems ROS: Stated complaint: ABDOMINAL PAIN/NAUSEA Other details as noted in HPI Constitutional: denies: chills, fever Eyes: denies: eye pain, eye discharge, vision change ENT: denies: ear pain, throat pain Respiratory: denies: cough, shortness of breath, wheezing Cardiovascular: denies: chest pain, palpitations Endocrine: no symptoms reported Gastrointestinal: abdominal pain, nausea, vomiting. denies: diarrhea Genitourinary: denies: urgency, dysuria, discharge Musculoskeletal: denies: back pain, joint swelling, arthralgia Skin: denies: rash, lesions Neurological: denies: headache, weakness, paresthesias Psychiatric: denies: anxiety, depression Hematological/Lymphatic: denies: easy bleeding, easy bruising ED Past Medical Hx - Past Medical History Previous Medical History?: Yes Hx Hypertension: Yes Hx Psychiatric Treatment: (anxiety) Additional medical history: enlarged tonsils, Heart arrhythmia,. Morbid Obesity - Surgical History Past Surgical History?: Yes Hx Cholecystectomy: Yes (2016) - Social History Smoking Status: Never Smoker Substance Use Type: None - Medications Home Medications: Home Medications Medication Instructions Recorded Confirmed Last Taken Type Magnesium Oxide [Magnesium] 400 mg PO QDAY #30 tablet 03/07/16 07/24/16 Rx Blisovi 24 Fe Tablet 07/24/16 07/24/16 History ALPRAZolam [Xanax TAB] 0.5 mg PO TID PRN #14 tab 07/25/16 Unknown Rx Chlorthalidone 25 mg PO QDAY #30 tablet 07/04/18 Unknown Rx Amoxicillin/Potassium Clav 1 each PO BID 10 Days #20 tablet 12/26/19 Unknown Rx [Augmentin 875-125 Tablet] Fluconazole (Nf) [Diflucan TAB] 150 mg PO ONCE PRN 1 Days #1 tablet 12/26/19 Unknown Rx Acetamin/Codeine 120-12Mg/5 ml 5 ml PO TID PRN #120 oz 12/27/19 Unknown Rx [Tylenol/Codeine] methylPREDNISolone [Medrol 4MG 4 mg PO DAILY #1 tab.ds.pk 12/27/19 Unknown Rx DOSEPAK (21 tabs)] Butalb/Acetaminophen/Caffeine 1 cap PO Q6HR PRN #30 cap 12/30/19 Unknown Rx [Fioricet 50-300-40 mg CAP] Ondansetron HCl [Zofran] 4 mg PO Q8H #20 tablet 12/30/19 Unknown Rx diphenhydrAMINE [Benadryl CAP] 25 mg PO Q8HR #20 capsule 12/30/19 Unknown Rx ED Physical Exam - General Limitations: No Limitations General appearance: alert, in no apparent distress - Head Head exam: Present: atraumatic, normocephalic, normal inspection - Eye Eye exam: Present: normal appearance, PERRL, EOMI Pupils: Present: normal accommodation - ENT ENT exam: Present: normal exam, normal orophraynx, mucous membranes moist, TM's normal bilaterally, normal external ear exam - Neck Neck exam: Present: normal inspection, full ROM - Respiratory Respiratory exam: Present: normal lung sounds bilaterally. Absent: respiratory distress, wheezes, rales, chest wall tenderness, prolonged expiratory - Cardiovascular Cardiovascular Exam: Present: normal rhythm, tachycardia. Absent: systolic murmur, diastolic murmur, rubs, gallop - GI/Abdominal GI/Abdominal exam: Present: soft, tenderness (Palpable RLQ tenderness, guarding), guarding, normal bowel sounds. Absent: rebound, hyperactive bowel sounds, hypoactive bowel sounds, organomegaly, mass - Extremities Exam Extremities exam: Present: normal inspection, full ROM, normal capillary refill - Back Exam Back exam: Present: normal inspection, full ROM. Absent: tenderness, CVA tenderness (R), CVA tenderness (L), muscle spasm, paraspinal tenderness, vertebral tenderness - Neurological Exam Neurological exam: Present: alert, oriented X3, CN II-XII intact, normal gait, reflexes normal - Psychiatric Psychiatric exam: Present: normal affect, normal mood - Skin Skin exam: Present: warm, dry, intact, normal color. Absent: rash ED Course Vital Signs 05/06/20 22:55 Temperature 98.0 F Pulse Rate 103 H Respiratory 19 Rate Blood Pressure 161/110 O2 Sat by Pulse 98 Oximetry ED Medical Decision Making - Lab Data Result diagrams: 05/06/20 23:16 05/06/20 23:16 - Radiology Data Radiology results: report reviewed, image reviewed Findings [facility] [address] [id number] Cat Scan Report Signed Patient: UMM HAGAN MR#: [id number] : 1990 Acct:[id number] Age/Sex: 29 / F ADM Date: 05/06/20 Loc: ED Attending Dr: Ordering Physician: NEETA VALDIVIA Date of Service: 05/06/20 Procedure(s): CT abdomen pelvis w con Accession Number(s): [id number] cc: NEETA VALDIVIA CT abdomen pelvis w con INDICATION / CLINICAL INFORMATION: Abdominal pain. TECHNIQUE: Axial CT imaging of abdomen and pelvis was obtained with IV contrast. Coronal and sagittal reformatted imaging obtained and reviewed. All CT scans at this location are performed using CT d ose reduction for eegoes by means of automated exposure control. COMPARISON: CT abdomen/pelvis, 10/28/2012 FINDINGS: CT abdomen with contrast demonstrates normal appearance of the liver, spleen, pancreas, kidneys, and adrenal glands. Prior cholecystectomy. I suspect there are a few nonobstructing calculi within both kidneys, but with IV contrast present, this is unclear. Certainly no hydronephrosis or renal mass is present. CT pelvis with contrast demonstrates a dilated and inflamed appendix consistent with acute appendicitis. The appendix is located in the right hemipelvis/adnexa. No evidence of rupture. The remainder of the GI tract is unremarkable. No pelvic mass or additional site of inflammatory changes noted. IUD is present. Visualized lung bases are grossly clear. No significant acute osseous abnormality noted. IMPRESSION: 1. Findings are consistent with acute appendicitis. No evidence of rupture. 2. Suspect bilateral nephrolithiasis. No obstruction. Signer Name: Елена Luu MD Signed: 05/07/2020 12:48 AM Workstation Name: [id number] Transcribed By: JR Dictated By: Елена Luu MD Electronically Authenticated By: Елена Luu MD Signed Date/Time: 05/07/2047 DD/ TD/TT: - Medical Decision Making This is a 29-year-old -Citizen Of [place] female with a history of hypertension and morbid obesity who presents to the ED with complaint of acute onset persistent severe diffuse abdominal pain radiating to the right lower quadrant and suprapubic area for the last 3 hours with intractable nausea and vomiting. Patient states that the pain has worsened and is constant sharp and crampy, waxing and waning, but gets worse with nausea and vomiting. In the ED, patient is alert and oriented x3 and is not in distress but tachycardic, afebrile, anxious and appears to be in significant pain. Patient was treated for pain and also given antiemetics and normal saline 1 L IV bolus x1. Lab test results were reviewed and showed acute leukocytosis of 12,900, hyperglycemia of 287 mg/dL, elevated alk phos of 153 and mild hyponatremia of 133 mmol/L. Abdomen pelvis CT scan with contrast showed findings are consistent with acute appendicitis. No evidence of rupture. It also showed suspected bilateral nephrolithiasis with no obstruction. Patient was also treated with Zosyn 4.5 g IV x1 with addition normal saline 1 L IV at 125 mL/hr. The patient case was discussed with the general surgeon on-call Dr. Franky Valerio who advised that the patient be kept n.p.o. and that patient be treated for pain and also started on antibiotic Zosyn, and that the hospitalist physician on-call admit the patient to the hospital and he shall consult on the patient upon admission. I therefore paged and discussed the patient's case with the hospitalist physician on-call Dr. Camille Mckeon who admitted the patient to the hospital. - Differential Diagnosis Appendicitis; Gastroenteritis; Ovarian cyst; UTI; Colitis; Renal stones Critical Care Time: Yes Critical care time in (mins) excluding proc time.: 45 Critical care attestation.: If time is entered above; I have spent that time in minutes in the direct care of this critically ill patient, excluding procedure time. ED Disposition Clinical Impression: Acute abdominal pain in right lower quadrant, Nausea and vomiting in adult patient, Bilateral nephrolithiasis Acute appendicitis Qualifiers: Acute appendicitis type: unspecified acute appendicitis type Qualified Code(s): K35.80 - Unspecified acute appendicitis Disposition: 09 OP ADMIT IP TO THIS HOSP Is pt being admited?: Yes Does the pt Need Aspirin: No Condition: Stable Instructions: Appendicitis, Adult, Nausea and Vomiting, Adult, [id number], Abdominal Pain, Adult, [id number], Appendicitis, Adult, [id number], Abdominal Pain (ED) Time of Disposition: 01:02 Print Language: SOMALI
[2020-05-07] MEDS ORDERED: HYDROmorphone 1 MG/1 ML INJ IV ONE (01:33)
[2020-05-07] MEDS ORDERED: ONDANSETRON 4 MG/2 ML INJ IV ONE (01:33)
[2020-05-07] MEDS ORDERED: ONDANSETRON 4 MG/2 ML INJ IV PRN ×3 (01:39→13:57)
[2020-05-07] MEDS ORDERED: ACETAMINOPHEN 325 MG TAB PO PRN ×2 (01:39→02:43)
--- NOTE | 2020-05-07 02:19 | History and Physical Report ---
<KIMBERLEEPOOJAFRANCISCO - Last Filed: 05/07/20 06:41> History of Present Illness Date of examination: 05/07/20 Date of admission: 05/07/20 01:39 Chief complaint: abdominal pain History of present illness: Patient is a 29-year-old female seen in ED at bedside. She has a history of hypertension, gallstone removal and morbid obesity. She came to the ED with chief complaint of acute onset persistent severe diffuse abdominal pain. patient alert and oriented. She reports pain that radiates to the right lower quadrant and suprapubic area. She said her symptom is ongoing for 3 days with intractable nausea and vomiting. Patient states that the pain has worsened and is constant sharp and crampy, waxing and waning, but gets worse with nausea and vomiting. At time of assessment, she reported pain level 4/10 after she received pain medicin e.CT of the abdomen was done and it showed acute appendicites and bilateral nephrolothiasis. No perforation and obstruction per radiology report. Patient denies fever, chills, diarrhea, dysuria, urinary frequency and urgency, vaginal bleeding, vaginal discharge, low back pain, chest pain, shortness of breath, sore throat, syncope or change in vision and constipation. ED Work up shows: WBC 12.9, Hemoglobin 15.0, Sodium level 133, Potassium 4.0. Cr 0.6, C02 22 CT of the pelvis/abdomen 1. acute appendicitis with evidence of rupture. 2. Suspect bilateral nephrolithiasis with no obstruction. Past History Past Medical History: hypertension Past Surgical History: cholecystectomy Social history: no significant social history Family history: no significant family history Medications and Allergies Allergies Allergy/AdvReac Type Severity Reaction Status Date / Time No Known Allergies Allergy Verified 07/04/18 10:12 Home Medications Medication Instructions Recorded Confirmed Last Taken Type Magnesium Oxide [Magnesium] 400 mg PO QDAY #30 tablet 03/07/16 07/24/16 Rx Blisovi 24 Fe Tablet 07/24/16 07/24/16 History ALPRAZolam [Xanax TAB] 0.5 mg PO TID PRN #14 tab 07/25/16 Unknown Rx Chlorthalidone 25 mg PO QDAY #30 tablet 07/04/18 Unknown Rx Amoxicillin/Potassium Clav 1 each PO BID 10 Days #20 tablet 12/26/19 Unknown Rx [Augmentin 875-125 Tablet] Fluconazole (Nf) [Diflucan TAB] 150 mg PO ONCE PRN 1 Days #1 tablet 12/26/19 Unknown Rx Acetamin/Codeine 120-12Mg/5 ml 5 ml PO TID PRN #120 oz 12/27/19 Unknown Rx [Tylenol/Codeine] methylPREDNISolone [Medrol 4MG 4 mg PO DAILY #1 tab.ds.pk 12/27/19 Unknown Rx DOSEPAK (21 tabs)] Butalb/Acetaminophen/Caffeine 1 cap PO Q6HR PRN #30 cap 12/30/19 Unknown Rx [Fioricet 50-300-40 mg CAP] Ondansetron HCl [Zofran] 4 mg PO Q8H #20 tablet 12/30/19 Unknown Rx diphenhydrAMINE [Benadryl CAP] 25 mg PO Q8HR #20 capsule 12/30/19 Unknown Rx Active Meds: Active Medications Acetaminophen (Tylenol) 650 mg PO Q4H PRN PRN Reason: Pain MILD(1-3)/Fever >100.5/TRONCOSO Ondansetron HCl (Zofran) 4 mg IV Q8H PRN PRN Reason: Nausea And Vomiting Sodium Chloride (Sodium Chloride Flush Syringe 10 Ml) 10 ml IV BID VIV Sodium Chloride (Sodium Chloride Flush Syringe 10 Ml) 10 ml IV PRN PRN PRN Reason: LINE FLUSH Review of Systems Gastrointestinal: abdominal pain Exam - Constitutional Vitals: Temp Pulse Resp BP Pulse Ox 98.0 F 103 H 19 161/110 98 05/06/20 22:55 05/06/20 22:55 05/06/20 22:55 05/06/20 22:55 05/06/20 22:55 General appearance: Present: mild distress, obese - EENT Eyes: Present: PERRL ENT: hearing intact, clear oral mucosa - Neck Neck: Present: supple, normal ROM - Respiratory Respiratory effort: normal Respiratory: bilateral: CTA - Cardiovascular Heart Sounds: Present: S1 & S2. Absent: rub, click - Extremities Extremities: pulses symmetrical, No edema - Abdominal General gastrointestinal: Present: soft, non-tender, non-distended, normal bowel sounds Localized gastrointestinal: tender: RLQ Female genitourinary: Present: normal - Integumentary Integumentary: Present: clear, warm, dry - Musculoskeletal Musculoskeletal: gait normal, strength equal bilaterally - Psychiatric Psychiatric: appropriate mood/affect, intact judgment & insight - Neurologic Neurologic: CNII-XII intact, moves all extremities - Allied Health Allied health notes reviewed: nursing Results - Labs CBC & Chem 7: 05/06/20 23:16 05/06/20 23:16 Labs: Abnormal lab results 05/06/20 05/06/20 05/06/20 Range/Units 23:16 23:16 23:27 WBC 12.9 H (4.5-11.0) K/mm3 RBC 5.13 H (3.65-5.03) M/mm3 Hgb 15.0 H (10.1-14.3) gm/dl Hct 44.9 H (30.3-42.9) % Sodium 133 L (137-145) mmol/L Chloride 94.3 L (98-107) mmol/L Glucose 287 H (65-100) mg/dL Alkaline Phosphatase 153 H (35-129) units/L Ur Specific Mcwilliams 1.036 H (1.003-1.030) Urine WBC (Auto) 8.0 H (0.0-6.0) /HPF Assessment and Plan - Patient Problems (1) Hypertension Current Visit: Yes Status: Acute Plan to address problem: monitor blood pressure resume home med (2) Acute abdominal pain in right lower quadrant Current Visit: Yes Status: Acute Plan to address problem: Pain medicine CT of the abdomen Shows acute appendicitis general surgeon consult (3) Acute appendicitis Current Visit: Yes Status: Acute Qualifiers: Acute appendicitis type: unspecified acute appendicitis type Qualified Co de(s): K35.80 - Unspecified acute appendicitis Plan to address problem: CT of the abdomen/pelvis- 1. Findings are consistent with acute appendicitis. No evidence of rupture. 2. Suspect bilateral nephrolithiasis. No obstruction. General surgeon consulted (4) Obesity Current Visit: No Status: Acute Plan to address problem: Discussed lifestyle modification healthy diet and weight management (5) Leucocytosis Current Visit: Yes Status: Acute Plan to address problem: Likely 2/2 to appendicitis Start empiric antibiotic with Zosyn (6) Hyponatremia Current Visit: Yes Status: Acute Plan to address problem: ? cause-likely dehydration Continue IV hydration (7) Bilateral nephrolithiasis Current Visit: Yes Status: Acute Plan to address problem: No evidence of obstruction IV hydration (8) Nausea and vomiting in adult patient Current Visit: Yes Status: Acute Plan to address problem: start antiemetic PRN (9) DVT prophylaxis Current Visit: Yes Status: Acute Plan to address problem: [place]itan[place] <LORI GREWAL S - Last Filed: 05/07/20 06:50> History of Present Illness Date of admission: 05/07/20 01:39 Medications and Allergies Active Meds: Active Medications Acetaminophen (Tylenol) 650 mg PO Q4H PRN PRN Reason: Pain MILD(1-3)/Fever >100.5/TRONCOSO Al Hydrox/Mg Hydrox/Simethicone (Alum-Mag Hydrox-Simeth [phone]/5ml) 30 ml PO Q4H PRN PRN Reason: Indigestion Alprazolam (Xanax) 0.25 mg PO Q8H PRN PRN Reason: Anxiety Famotidine (Pepcid) 20 mg IV BID VIV Piperacillin Sod/Tazobactam Sod (Zosyn/Ns 4.5gm/100ml) 4.5 gm in 100 mls @ 200 mls/hr IV Q8HR VIV; Protocol Sodium Chloride (Nacl 0.9% 1000 Ml) 1,000 mls @ 100 mls/hr IV DIRECT VIV Labetalol HCl (Labetalol) 10 mg IV Q6HR PRN PRN Reason: Hypertension Metoclopramide HCl (Reglan) 10 mg IV Q6H PRN PRN Reason: Nausea And Vomiting Metoprolol Tartrate (Metoprolol) 50 mg PO QDAY VIV Morphine Sulfate (Morphine) 2 mg IV Q4H PRN PRN Reason: Pain, Moderate (4-6) Ondansetron HCl (Zofran) 4 mg IV Q8H PRN PRN Reason: Nausea And Vomiting Senna (Senokot) 8.6 mg PO Q12HR PRN PRN Reason: Constipation Sodium Chloride (Sodium Chloride Flush Syringe 10 Ml) 10 ml IV BID VIV Sodium Chloride (Sodium Chloride Flush Syringe 10 Ml) 10 ml IV PRN PRN PRN Reason: LINE FLUSH Trazodone HCl (Desyrel) 50 mg PO QHS [facility] Exam - Constitutional Vitals: Temp Pulse Resp BP Pulse Ox 98.1 F 107 H 18 139/72 99 05/07/20 03:49 05/07/20 03:49 05/07/20 03:49 05/07/20 03:49 05/07/20 03:49 Results - Labs CBC & Chem 7: 05/06/20 23:16 05/06/20 23:16 Labs: Abnormal lab results 05/06/20 05/06/20 05/06/20 Range/Units 23:16 23:16 23:27 WBC 12.9 H (4.5-11.0) K/mm3 RBC 5.13 H (3.65-5.03) M/mm3 Hgb 15.0 H (10.1-14.3) gm/dl Hct 44.9 H (30.3-42.9) % Lymphocytes % (Manual) 38.0 H (13.4-35.0) % Sodium 133 L (137-145) mmol/L Chloride 94.3 L (98-107) mmol/L Glucose 287 H (65-100) mg/dL Hemoglobin A1c (4-6) % Alkaline Phosphatase 153 H (35-129) units/L Cholesterol (50-199) mg/dL LDL Cholesterol Direct (50-130) mg/dL HDL Cholesterol (40-59) mg/dL Ur Specific Mcwilliams 1.036 H (1.003-1.030) Urine WBC (Auto) 8.0 H (0.0-6.0) /HPF 05/07/20 05/07/20 Range/Units 04:28 04:28 WBC (4.5-11.0) K/mm3 RBC (3.65-5.03) M/mm3 Hgb (10.1-14.3) gm/dl Hct (30.3-42.9) % Lymphocytes % (Manual) (13.4-35.0) % Sodium (137-145) mmol/L Chloride (98-107) mmol/L Glucose (65-100) mg/dL Hemoglobin A1c 12.6 H (4-6) % Alkaline Phosphatase (35-129) units/L Cholesterol 266 H (50-199) mg/dL LDL Cholesterol Direct 196 H (50-130) mg/dL HDL Cholesterol 64 H (40-59) mg/dL Ur Specific Mcwilliams (1.003-1.030) Urine WBC (Auto) (0.0-6.0) /HPF Assessment and Plan Acute appendicitis Patient was initiated on IV Zosyn 4.5 every 8
[2020-05-07] MEDS ORDERED: ALUM-MAG HYDROXIDE-SIMETHICONE 200-200-20MG/5ML ORAL LIQD 30 ML PO PRN (02:43)
[2020-05-07] MEDS ORDERED: METOCLOPRAMIDE 10 MG/2 ML INJ IV PRN (02:43)
[2020-05-07] MEDS ORDERED: SENNOSIDES 8.6 MG TAB PO PRN (02:43)
[2020-05-07] MEDS ORDERED: SODIUM CHLORIDE 0.9% 1000 ML 1,000 ML IV SCH (02:45)
[2020-05-07 03:45] LABS: Basophils % (Manual) 0 % (0.0-1.8); Eosinophils % (Manual) 0 % (0.0-4.3); Platelet Estimate Consistent w Auto; Total Cells Counted 100
[2020-05-07 05:28] LABS: Chol/HDL Ratio 4.15 %
[2020-05-07] MEDS ORDERED: PIPERACIL/TAZOBACTA 4.5/NS 100 4.5 GM/100 ML VIAL IV SCH (06:00)
[2020-05-07] MEDS ORDERED: ALPRAZolam 0.25 MG TAB PO PRN (06:45)
[2020-05-07] MEDS ORDERED: ceFAZolin/Water 2 GM/20 ML 2 GM/20 ML SYRINGE IV NR (08:00)
[2020-05-07] MEDS ORDERED: metroNIDAZOLE/NS 500 MG/100 ML 500 MG/100 ML BAG IV NR (08:00)
[2020-05-07] MEDS ORDERED: CHLORTHALIDONE 25 MG TAB PO SCH (10:00)
[2020-05-07] MEDS ORDERED: METOPROLOL TARTRATE 50 MG TAB PO SCH (10:00)
[2020-05-07] MEDS ORDERED: FAMOTIDINE 20 MG/2 ML INJ IV ONE (10:34)
[2020-05-07] MEDS ORDERED: METOPROLOL TARTRATE 50 MG TAB ONE (10:37)
[2020-05-07] MEDS: FAMOTIDINE 20 MG/2 ML INJ IV SCH ×2 (10:46→21:00)
[2020-05-07] MEDS ORDERED: OXYMETAZOLINE 0.05% NASAL SPRAY NS PRN (11:00)
[2020-05-07] MEDS ORDERED: OXYMETAZOLINE 0.05% NASAL SPRAY ONE (11:27)
[2020-05-07] MEDS ORDERED: HYDROmorphone 1 MG/1 ML INJ IV PRN ×2 (13:57)
[2020-05-07] MEDS ORDERED: HEPARIN 5,000 UNIT/1 ML VIAL SUB-Q NR (14:00)
[2020-05-07] MEDS ORDERED: MIDAZOLAM 2 MG/2 ML INJ IV NR (14:00)
--- NOTE | 2020-05-07 14:05 | Anesthesia Day of Surgery ---
Anesthesia Day of Surgery - Day of Surgery Patient Examined: Yes Patient H&P Reviewed: Yes Patient is NPO: Yes Beta Blockers: Yes
--- NOTE | 2020-05-07 14:07 | Anesthesia Consultation ---
Anesthesia Consult and Med Hx Date of service: 05/07/20 - Airway Anesthetic Teeth Evaluation: Good (Braces) ROM Head & Neck: Adequate Mental/Hyoid Distance: Adequate Mallampati Class: Class III Intubation Access Assessment: Probably Good - Pre-Operative Health Status ASA Pre-Surgery Classification: ASA3, Emergency Proposed Anesthetic Plan: General - Pulmonary Hx Respiratory Symptoms: No (+2FS) Hx Sleep Apnea: No (Pt denies) - Cardiovascular System Hx Hypertension: Yes Hx Cardia Arrhythmia: Yes (Pt has palpitations. Had ECHO and Holter last year-pt states ok) - Gastrointestinal Hx Gastroesophageal Reflux Disease: Yes (Occasional) - Endocrine Hx Renal Disease: Yes (Stones) Hx Non-Insulin Dependent Diabetes: Yes (HgbA1C 12.6 diagnosed today)
--- NOTE | 2020-05-07 14:08 | Consultation ---
History of Present Illness Consult date: 05/07/20 Reason for consult: abdominal pain (29 yo female with onset of abdominal pain, nausea and vomiting yesterday afternoon. She denies associated hematemesis, melena, hematochezia, change in bowel habits or urinary complaints. She also denies any h/o fever or chills. The pain was initially epigastric but now is most severe in the RLQ.) Past History Past Medical History: hypertension Past Surgical History: cholecystectomy Social history: no significant social history Family history: no significant family history Medications and Allergies Allergies Allergy/AdvReac Type Severity Reaction Status Date / Time No Known Allergies Allergy Verified 07/04/18 10:12 Active Meds: Active Medications Acetaminophen (Tylenol) 650 mg PO Q4H PRN PRN Reason: Pain MILD(1-3)/Fever >100.5/TRONCOSO Al Hydrox/Mg Hydrox/Simethicone (Alum-Mag Hydrox-Simeth [id number]/5ml) 30 ml PO Q4H PRN PRN Reason: Indigestion Alprazolam (Xanax) 0.25 mg PO Q8H PRN PRN Reason: Anxiety Famotidine (Pepcid) 20 mg IV BID VIV Last Admin: 05/07/20 10:46 Dose: 20 mg Documented by: Hydromorphone HCl (Dilaudid) 0.25 mg IV Q10MIN PRN PRN Reason: Pain, Moderate (4-6) Stop: 05/07/20 23:59 Hydromorphone HCl (Dilaudid) 0.5 mg IV Q10MIN PRN PRN Reason: Pain , Severe (7-10) Stop: 05/07/20 23:59 Sodium Chloride (Nacl 0.9% 1000 Ml) 1,000 mls @ 100 mls/hr IV DIRECT VIV Metronidazole (Flagyl 500 Mg/100 Ml) 500 mg in 100 mls @ 200 mls/hr IV PREOP NR; Protocol Stop: 05/07/20 20:00 Piperacillin Sod/Tazobactam Sod (Zosyn/Ns 3.375gm/50ml) 3.375 gm in 50 mls @ 100 mls/hr IV Q8HR VIV; Protocol Labetalol HCl (Labetalol) 10 mg IV Q6HR PRN PRN Reason: Hypertension Metoclopramide HCl (Reglan) 10 mg IV Q6H PRN PRN Reason: Nausea And Vomiting Metoprolol Tartrate (Metoprolol) 50 mg PO QDAY [facility] Last Admin: 05/07/20 10:46 Dose: 50 mg Documented by: Morphine Sulfate (Morphine) 2 mg IV Q4H PRN PRN Reason: Pain, Moderate (4-6) Ondansetron HCl (Zofran) 4 mg IV Q8H PRN PRN Reason: Nausea And Vomiting Ondansetron HCl (Zofran) 4 mg IV ONCE PRN PRN Reason: Nausea And Vomiting Oxymetazoline HCl (Vicks Sinex) 2 spray NS Q12H PRN PRN Reason: Nasal Congestion Last Admin: 05/07/20 11:31 Dose: 2 spray Documented by: Senna (Senokot) 8.6 mg PO Q12HR PRN PRN Reason: Constipation Sodium Chloride (Sodium Chloride Flush Syringe 10 Ml) 10 ml IV BID [facility] Last Admin: 05/07/20 11:44 Dose: Not Given Documented by: Sodium Chloride (Sodium Chloride Flush Syringe 10 Ml) 10 ml IV PRN PRN PRN Reason: LINE FLUSH Trazodone HCl (Desyrel) 50 mg PO QHS [facility] Review of Systems All systems: negative (none) Exam Vital Signs Temp Pulse Resp BP Pulse Ox 98.0 F 103 H 19 161/110 98 05/06/20 22:55 05/06/20 22:55 05/06/20 22:55 05/06/20 22:55 05/06/20 22:55 - General physical appearance Positive: well developed, well nourished, no distress - Eyes Positive: PERRL, normal occular movement - ENT Positive: normal pinna, normal nares, normal mucosa, no hearing loss, no congestion - Neck Positive: no masses, no bruits, trachea midline, no venous distension - Respiratory Positive: normal expansion, normal respiratory effort, clear to auscultation - Cardiovascular Rhythm: regular Heart Sounds: Present: S1 & S2. Absent: rub, click - Extremities Extremities: no ischemia, pulses symmetrical, No edema - Breasts Breasts: normal, no mass, no skin changes - Abdomen Abdomen: Present: soft, bowel sounds normal, other (Mildly tender to deep palpation in the RLQ without rebound or guarding.). Absent: distended Hernia: none - Genitourinary Male Genitourinary: normal Female Genitourinary: normal - Integumentary no rash, no growths, no abnormal pigmentation - Neurologic Neurologic: alert and oriented to time, place and person, motor strength and sensation are grossly intact - Musculoskeletal normal gait, normal posture - Psychiatric Psychiatric: appropriate mood/affect, intact judgment & insight Results - Labs 05/06/20 23:16 05/06/20 23:16 Abnormal lab results 05/06/20 05/06/20 05/06/20 Range/Units 23:16 23:16 23:27 WBC 12.9 H (4.5-11.0) K/mm3 RBC 5.13 H (3.65-5.03) M/mm3 Hgb 15.0 H (10.1-14.3) gm/dl Hct 44.9 H (30.3-42.9) % Lymphocytes % (Manual) 38.0 H (13.4-35.0) % Sodium 133 L (137-145) mmol/L Chloride 94.3 L (98-107) mmol/L Glucose 287 H (65-100) mg/dL Hemoglobin A1c (4-6) % Alkaline Phosphatase 153 H (35-129) units/L Cholesterol (50-199) mg/dL LDL Cholesterol Direct (50-130) mg/dL HDL Cholesterol (40-59) mg/dL Ur Specific [place] 1.036 H (1.003-1.030) Urine WBC (Auto) 8.0 H (0.0-6.0) /HPF 05/07/20 05/07/20 Range/Units 04:28 04:28 WBC (4.5-11.0) K/mm3 RBC (3.65-5.03) M/mm3 Hgb (10.1-14.3) gm/dl Hct (30.3-42.9) % Lymphocytes % (Manual) (13.4-35.0) % Sodium (137-145) mmol/L Chloride (98-107) mmol/L Glucose (65-100) mg/dL Hemoglobin A1c 12.6 H (4-6) % Alkaline Phosphatase (35-129) units/L Cholesterol 266 H (50-199) mg/dL LDL Cholesterol Direct 196 H (50-130) mg/dL HDL Cholesterol 64 H (40-59) mg/dL Ur Specific [place] (1.003-1.030) Urine WBC (Auto) (0.0-6.0) /HPF Diabetes panel 05/06/20 05/07/20 05/07/20 Range/Units 23:16 04:28 04:28 Sodium 133 L (137-145) mmol/L Potassium 4.0 (3.6-5.0) mmol/L Chloride 94.3 L (98-107) mmol/L Carbon Dioxide 22 (22-30) mmol/L BUN 9 (7-17) mg/dL Creatinine 0.6 (0.6-1.2) mg/dL Glucose 287 H (65-100) mg/dL Hemoglobin A1c 12.6 H (4-6) % Calcium 9.6 (8.4-10.2) mg/dL AST 18 (5-40) units/L ALT 19 (7-56) units/L Alkaline Phosphatase 153 H (35-129) units/L Total Protein 8.0 (6.3-8.2) g/dL Albumin 4.5 (3.9-5) g/dL Triglycerides 91 (2-149) mg/dL HDL Cholesterol 64 H (40-59) mg/dL Calcium panel 05/06/20 Range/Units 23:16 Calcium 9.6 (8.4-10.2) mg/dL Albumin 4.5 (3.9-5) g/dL Pituitary panel 05/06/20 Range/Units 23:16 Sodium 133 L (137-145) mmol/L Potassium 4.0 (3.6-5.0) mmol/L Chloride 94.3 L (98-107) mmol/L Carbon Dioxide 22 (22-30) mmol/L BUN 9 (7-17) mg/dL Creatinine 0.6 (0.6-1.2) mg/dL Glucose 287 H (65-100) mg/dL Calcium 9.6 (8.4-10.2) mg/dL Adrenal panel 05/06/20 Range/Units 23:16 Sodium 133 L (137-145) mmol/L Potassium 4.0 (3.6-5.0) mmol/L Chloride 94.3 L (98-107) mmol/L Carbon Dioxide 22 (22-30) mmol/L BUN 9 (7-17) mg/dL Creatinine 0.6 (0.6-1.2) mg/dL Glucose 287 H (65-100) mg/dL Calcium 9.6 (8.4-10.2) mg/dL Total Bilirubin 0.30 (0.1-1.2) mg/dL AST 18 (5-40) units/L ALT 19 (7-56) units/L Alkaline Phosphatase 153 H (35-129) units/L Total Protein 8.0 (6.3-8.2) g/dL Albumin 4.5 (3.9-5) g/dL - Imaging CT scan - abdomen: report reviewed CT scan - pelvis: report reviewed Additional studies: A1c > 12 Assessment and Plan - Patient Problems (1) Acute appendicitis Current Visit: Yes Status: Acute Qualifiers: Acute appendicitis type: unspecified acute appendicitis type Qualified Code(s): K35.80 - Unspecified acute appendicitis Plan to address problem: 1) IV Zosyn 2) Lap appendectomy 3) Prophylactic SCD and SQ Heparin 4) Optimal management of newly diagnosed Type 2 DM.
[2020-05-07] MEDS: SODIUM CHLORIDE 0.9% 1000 ML 1,000 ML IV SCH ×2 (14:10→20:56)
[2020-05-07] MEDS ORDERED: PIPERACIL/TAZOBACTA 4.5/NS 100 4.5 GM/100 ML VIAL IV NR (14:15)
[2020-05-07] MEDS ORDERED: MIDAZOLAM 2 MG/2 ML INJ ONE ×2 (14:16→14:46)
[2020-05-07] MEDS ORDERED: HEPARIN 5,000 UNIT/1 ML VIAL ONE (14:21)
[2020-05-07] MEDS ORDERED: SUCCINYLCHOLINE CHLORIDE 200 MG/10 ML INJ MDV ONE (14:26)
[2020-05-07] MEDS ORDERED: HYDROmorphone 1 MG/1 ML INJ ONE (14:26)
[2020-05-07] MEDS ORDERED: propofoL 200 MG/20 ML VIAL IV ONE (14:26)
[2020-05-07] MEDS ORDERED: LIDOCAINE MPF (2%) 20 MG/1 ML VIAL 5 ML ONE (14:26)
[2020-05-07] MEDS: HEPARIN 5,000 UNIT/1 ML VIAL SUB-Q NR ×2 (14:35→21:00)
[2020-05-07] MEDS ORDERED: ROCURONIUM 50 MG/5 ML INJ IV ONE (14:45)
[2020-05-07] MEDS ORDERED: BUPIVACAINE-EPINEPHRINE/PF 0.5%-1:200,000 (10 ML) VIAL INFILTRATI ONE (15:10)
[2020-05-07] MEDS ORDERED: BUPIVACAINE-EPINEPHRINE/PF 0.5%-1:200,000 (30 ML) VIAL INFILTRATI ONE (15:52)
[2020-05-07] MEDS ORDERED: SODIUM CHLORIDE 0.9% IRR 1,500 ML BOTTLE IR ONE (15:53)
[2020-05-07] MEDS ORDERED: NEOSTIGMINE 10MG/10 ML INJ MDV ONE (16:27)
[2020-05-07] MEDS ORDERED: GLYCOPYRROLATE 0.4 MG/2 ML INJ ONE (16:27)
[2020-05-07] MEDS ORDERED: DEXTROSE 50% IN WATER (25GM) 50 ML SYRINGE IV PRN (16:27)
--- NOTE | 2020-05-07 16:33 | Event Note ---
Patient is a 29-year-old female with hypertension who presents to the emergency department on 05/07 with 3-day history of intractable nausea and vomiting and abdominal pain. Her abdominal pain is described as worsening over the 3 days and is a constant sharp and crampy pain which waxes and wanes but gets worse with nausea and vomiting. Recommend emergency department included a CT abdomen which showed acute appendicitis without evidence of rupture with bilateral nephrolithiasis without any perforation or obstruction. Patient was initiated on prophylactic antibiotics and metoprolol for hypertension. Patient has no home medications. This morning we added Flagyl for surgical prophylaxis. General surgery was consulted in emergency department and will perform a laparoscopic appendectomy. We will continue to monitor her vital signs as well as her labs.
--- NOTE | 2020-05-07 17:46 | Procedure Note ---
Date of procedure: 05/07/20 Pre-op diagnosis: acute appendicitis Post-op diagnosis: same Procedure: Laparoscopic appendectomy Description of procedure: Pt was placed supine on the OR table. GETA was administered. Abdomen was prepped and draped. Proposed trocar sites were infiltrated with 10 ml of 0.5% Marcaine with epinephrine. Peritoneal cavity was accessed via a small infraumbilical incision. Eddie port was inserted into the peritoneal cavity and pneumoperitoneum established. Two 5 mm ports were inserted into the peritoneal cavity under direct vision in the suprapubic space and LLQ. Pt was placed head down and right side rotated upward. Appendix was identified and was found to be inflammed and edematous without evidence of perforation. Mesoappendix was clamped, cauterized and divided with a Ligasure device until the base of the appendix was freed up. The base of the appendix was clamped and divided with an endoscopic SULEIMAN device. Appendix was placed in an endobag and the endobag removed via the infraumbilical defect. Repeat laparoscopy revealed no bleeding in the RLQ or from the 5 mm trocar incisions. Pneumoperitoneum was released. Infraumbilical fascial defect was closed with two interrupted sutures of 0-Vicryl. Skin incisions were approximated with running, subcuticular sutures of 4-0 Monocryl. Skin glue was applied to all 3 incisions. Pt tolerated the procedure well. She was extubated in the OR and was taken to PACU in stable condition. Anesthesia: GETA Surgeon: ARASELI RÍOS Estimated blood loss: 50-100ml Pathology: list (appendix) Specimen disposition: to lab Condition: stable Disposition: PACU
--- NOTE | 2020-05-07 17:55 | Post Anesthesia Evaluation ---
- Post Anesthesia Evaluation Patient Participated: Yes Airway Patent: Yes Stable Respiratory Function: Yes Nausea/Vomiting: No Temp > 96.8F: Yes Pain Manageable: Yes Adequeate Hydration: Yes Anesthesia Complications: No Block Receding Appropriately: Not Applicable Patient on Ventilator: No
[2020-05-07] MEDS: INSULIN REGULAR, HUMAN 100 UNIT/ML 3ML VIAL SUB-Q SCH ×2 (18:05→21:04)
[2020-05-07] MEDS: traZODone 50 MG TAB PO SCH (21:00)
[2020-05-07] MEDS: MORPHINE 2 MG/1 ML INJ IV PRN (21:00)
[2020-05-07] MEDS: PIPERACILLIN/TAZOBACTAM 3.375 3.375 GM/50 ML BAG IV SCH ×2 (23:12→23:30)
[2020-05-08] MEDS: MORPHINE 2 MG/1 ML INJ IV PRN ×2 (01:11→07:06)
[2020-05-08 05:27] LABS: Basophils % (Auto) 0.4 % (0.0-1.8); Eosinophils % (Auto) 0.1 % (0.0-4.3); Hematocrit 40.6 % (30.3-42.9); Hemoglobin 13.5 gm/dl (10.1-14.3); Lymphocytes # (Auto) 2.5 K/mm3 (1.2-5.4); Lymphocytes % (Auto) 28.1 % (13.4-35.0); Mean Corpuscular HGB Conc 33 % (30-34); Mean Corpuscular Volume 90 fl (79-97); Monocytes # (Auto) 0.8 K/mm3 (0.0-0.8); Platelet Count 185 K/mm3 (140-440); Red Blood Count 4.52 M/mm3 (3.65-5.03); Red Cell Distribution Width 15.3 % (13.2-15.2)
[2020-05-08] MEDS: PIPERACILLIN/TAZOBACTAM 3.375 3.375 GM/50 ML BAG IV SCH ×4 (05:37→22:09)
[2020-05-08 05:51] LABS: Blood Urea Nitrogen 4 mg/dL (7-17); Calcium 8.5 mg/dL (8.4-10.2); Hemolysis Index 7
[2020-05-08 05:53] LABS: Alanine Aminotransferase 14 units/L (7-56); Albumin 3.9 g/dL (3.9-5)
[2020-05-08 05:56] LABS: BUN/Creatinine Ratio 6; Bilirubin,Direct < 0.2 mg/dL (0-0.2)
[2020-05-08] MEDS ORDERED: HYDROmorphone 1 MG/1 ML INJ IV PRN ×2 (08:00)
[2020-05-08] MEDS: INSULIN REGULAR, HUMAN 100 UNIT/ML 3ML VIAL SUB-Q SCH ×4 (08:28→22:10)
--- NOTE | 2020-05-08 09:21 | Progress Note ---
Assessment and Plan - Patient Problems (1) Acute appendicitis Current Visit: Yes Status: Acute Qualifiers: Acute appendicitis type: unspecified acute appendicitis type Qualified Code(s): K35.80 - Unspecified acute appendicitis Plan to address problem: 1) Can be discharged from my perspective. 2) F/u in my office in 2 weeks 3) May shower in 48 hours 4) No lifting or straining 5) Diet as tolerated 6) Levaquin, 500 mg po daily X 7 days + narcotic of choice Subjective Date of service: 05/08/20 Patient Reports: Positive: no new complaints, feels better, pain is less, tolerating liquids well Objective Vital Signs - 12hr 05/07/20 05/08/20 05/08/20 23:39 03:43 07:26 Temperature 98.6 F 98.4 F 98.3 F Pulse Rate 104 H 110 H 99 H Respiratory 16 16 22 Rate Blood Pressure 126/79 142/80 Blood Pressure 157/75 [Left] O2 Sat by Pulse 96 99 99 Oximetry - Abdomen soft, bowel sounds normal (non-tender) - Labs 05/08/20 04:28 05/08/20 04:28 Diabetes panel 05/08/20 05/08/20 Range/Units 04:28 04:28 Sodium 134 L (137-145) mmol/L Potassium 3.8 (3.6-5.0) mmol/L Chloride 101.3 (98-107) mmol/L Carbon Dioxide 18 L (22-30) mmol/L BUN 4 L (7-17) mg/dL Creatinine 0.7 (0.6-1.2) mg/dL Glucose 203 H (65-100) mg/dL Calcium 8.5 (8.4-10.2) mg/dL AST 12 (5-40) units/L ALT 14 (7-56) units/L Alkaline Phosphatase 125 (35-129) units/L Total Protein 6.8 (6.3-8.2) g/dL Albumin 3.9 (3.9-5) g/dL Calcium panel 05/08/20 05/08/20 Range/Units 04:28 04:28 Calcium 8.5 (8.4-10.2) mg/dL Albumin 3.9 (3.9-5) g/dL Pituitary panel 05/08/20 Range/Units 04:28 Sodium 134 L (137-145) mmol/L Potassium 3.8 (3.6-5.0) mmol/L Chloride 101.3 (98-107) mmol/L Carbon Dioxide 18 L (22-30) mmol/L BUN 4 L (7-17) mg/dL Creatinine 0.7 (0.6-1.2) mg/dL Glucose 203 H (65-100) mg/dL Calcium 8.5 (8.4-10.2) mg/dL Adrenal panel 05/08/20 05/08/20 Range/Units 04:28 04:28 Sodium 134 L (137-145) mmol/L Potassium 3.8 (3.6-5.0) mmol/L Chloride 101.3 (98-107) mmol/L Carbon Dioxide 18 L (22-30) mmol/L BUN 4 L (7-17) mg/dL Creatinine 0.7 (0.6-1.2) mg/dL Glucose 203 H (65-100) mg/dL Calcium 8.5 (8.4-10.2) mg/dL Total Bilirubin 0.40 (0.1-1.2) mg/dL AST 12 (5-40) units/L ALT 14 (7-56) units/L Alkaline Phosphatase 125 (35-129) units/L Total Protein 6.8 (6.3-8.2) g/dL Albumin 3.9 (3.9-5) g/dL
[2020-05-08] MEDS ORDERED: cefTRIAXone/NS 1 GM/50 ML 1 GM/50 ML BAG IV SCH (10:00)
[2020-05-08] MEDS: METOPROLOL SUCCINATE XL 50 MG TAB PO SCH (10:12)
[2020-05-08] MEDS: FAMOTIDINE 20 MG/2 ML INJ IV SCH ×2 (10:13→22:09)
[2020-05-08] MEDS ORDERED: oxyCODONE /ACETAMINOPHEN 5-325MG TAB PO PRN ×2 (11:20→19:38)
--- NOTE | 2020-05-08 11:53 | Progress Note ---
<TESS JORGENSEN - Last Filed: 05/08/20 14:38> Assessment and Plan - Patient Problems (1) Sepsis Current Visit: Yes Status: Acute Plan to address problem: - Presented with tachycardia, leukocytosis and appendicitis - s/p lap appendectomy - s/p surgical prophylactic abx - on abx therapy - 05/07 UA shows trace LE - 05/07 BC x2 NGTD - DC on Levaquin per surgery (2) Acute appendicitis Current Visit: Yes Status: Acute Qualifiers: Acute appendicitis type: unspecified acute appendicitis type Qualified Code(s): K35.80 - Unspecified acute appendicitis Plan to address problem: - Presented with RLQ pain - 05/07 s/p laproscopic appendectomy - On zosyn, s/p flagyl and cefepime preop - Per surgery: Can be discharged, F/u in my office in 2 weeks, May shower in 48 hours, No lifting or straining, Diet as tolerated, Levaquin, 500 mg po daily X 7 days + narcotic of choice (3) Leucocytosis Current Visit: Yes Status: Resolved Plan to address problem: - Presented with WBC 12.9 - 05/08 WBC 8.8 - Trend CBC - On abx therapy (4) Hypertension Current Visit: Yes Status: Chronic Plan to address problem: - Restarted home anti htn regimen - BP monitoring per protocol - PRN antihtn for SBP>160 (5) Morbid obesity with BMI of 50.0-59.9, adult Current Visit: Yes Status: Chronic Plan to address problem: - Diet and PE encouraged - f/u with PCP (6) Diabetes mellitus Current Visit: Yes Status: Acute Plan to address problem: - 05/07 Hgb A1c 12.6 - SSI - Accucheck ACHS - need to f/u with PCP for initiation of antidiabetic regimen - Diet and PE encourged (7) Hyponatremia Current Visit: Yes Status: Acute Plan to address problem: - Presented with Na 133 - 05/08 Na 134 - s/p MIVF - on CLD (8) Hypochloremia Current Visit: Yes Status: Resolved Plan to address problem: - Presented with Cl of 94.3 - 05/08 Cl 101.3 - s/p MIVF (9) Hyperlipidemia Current Visit: Yes Status: Acute Plan to address problem: - 11/9 lipid panel: triglyceride: 91, cholesterol: 266, LDL: 196, HDL 64 - Initiate statin therapy - F/u with PCP (10) DVT prophylaxis Current Visit: Yes Status: Acute Plan to address problem: -SCDs to BLE while in bed - Lovenox sub q History Interval history: Patient is a 29-year-old female with hypertension who presents to the emergency department on 05/07 with 3-day history of intractable nausea and vomiting and abdominal pain. Her abdominal pain is described as worsening over the 3 days and is a constant sharp and crampy pain which waxes and wanes but gets worse with nausea and vomiting. Recommend emergency department included a CT abdomen which showed acute appendicitis without evidence of rupture with bilateral nephrolithiasis without any perforation or obstruction. Patient was initiated on prophylactic antibiotics and metoprolol for hypertension. General surgery was consulted in emergency department and she is s/p laparoscopic appendectomy. Patient complains of an "yeast infection" stating she has mild itching, irritated periarea and a think discharge. Her UA from 05/07 showed trace LE only. She also states she is prescribed diflucan with her abx by per PCP if needed. Her hbg A1C is 12.6. Also her pain medications were modified for better pain control. Diflucan added 05/07: added Flagyl for surgical prophylaxis. Lap appendectomy Hospitalist Physical - Constitutional Vitals: Temp Pulse Resp BP Pulse Ox 98.3 F 103 H 22 145/83 99 05/08/20 07:26 05/08/20 10:12 05/08/20 07:26 05/08/20 10:12 05/08/20 07:26 General appearance: Present: no acute distress, obese - EENT Eyes: Present: PERRL, EOM intact ENT: hearing intact, clear oral mucosa - Neck Neck: Present: supple, normal ROM - Respiratory Respiratory effort: normal Respiratory: bilateral: CTA - Cardiovascular Rhythm: regular Heart Sounds: Present: S1 & S2. Absent: systolic murmur - Extremities Extremities: no ischemia, pulses intact, pulses symmetrical, No edema, normal temperature, normal color, Full ROM Peripheral Pulses: within normal limits - Abdominal General gastrointestinal: soft, non-tender, non-distended, normal bowel sounds - Integumentary Integumentary: Present: clear, warm, dry - Psychiatric Psychiatric: appropriate mood/affect, cooperative - Neurologic Neurologic: CNII-XII intact, no focal deficits, moves all extremities - Allied Health Allied health notes reviewed: nursing Results - Labs CBC & Chem 7: 05/08/20 04:28 05/08/20 04:28 Labs: Laboratory Last Values WBC 8.8 K/mm3 (4.5-11.0) 05/08/20 04:28 RBC 4.52 M/mm3 (3.65-5.03) 05/08/20 04:28 Hgb 13.5 gm/dl (10.1-14.3) 05/08/20 04:28 Hct 40.6 % (30.3-42.9) 05/08/20 04:28 MCV 90 fl (79-97) 05/08/20 04:28 MCH 30 pg (28-32) 05/08/20 04:28 MCHC 33 % (30-34) 05/08/20 04:28 RDW 15.3 % (13.2-15.2) H 05/08/20 04:28 Plt Count 185 K/mm3 (140-440) 05/08/20 04:28 Lymph % (Auto) 28.1 % (13.4-35.0) 05/08/20 04:28 [place] % (Auto) 9.0 % (0.0-7.3) H 05/08/20 04:28 Eos % (Auto) 0.1 % (0.0-4.3) 05/08/20 04:28 Baso % (Auto) 0.4 % (0.0-1.8) 05/08/20 04:28 Lymph # (Auto) 2.5 K/mm3 (1.2-5.4) 05/08/20 04:28 [place] # (Auto) 0.8 K/mm3 (0.0-0.8) 05/08/20 04:28 Eos # (Auto) 0.0 K/mm3 (0.0-0.4) 05/08/20 04:28 Baso # (Auto) 0.0 K/mm3 (0.0-0.1) 05/08/20 04:28 Add Manual Diff Complete 05/06/20 23:16 Total Counted 100 05/06/20 23:16 Seg Neutrophils % 62.4 % (40.0-70.0) 05/08/20 04:28 Seg Neuts % (Manual) 58.0 % (40.0-70.0) 05/06/20 23:16 Band Neutrophils % 0 % 05/06/20 23:16 Lymphocytes % (Manual) 38.0 % (13.4-35.0) H 05/06/20 23:16 Reactive Lymphs % (Man) 0 % 05/06/20 23:16 Monocytes % (Manual) 4.0 % (0.0-7.3) 05/06/20 23:16 Eosinophils % (Manual) 0 % (0.0-4.3) 05/06/20 23:16 Basophils % (Manual) 0 % (0.0-1.8) 05/06/20 23:16 Metamyelocytes % 0 % 05/06/20 23:16 Myelocytes % 0 % 05/06/20 23:16 Promyelocytes % 0 % 05/06/20 23:16 Blast Cells % 0 % 05/06/20 23:16 Nucleated RBC % Not Reportable 05/06/20 23:16 Seg Neutrophils # 5.5 K/mm3 (1.8-7.7) 05/08/20 04:28 Seg Neutrophils # Man 7.5 K/mm3 (1.8-7.7) 05/06/20 23:16 Band Neutrophils # 0.0 K/mm3 05/06/20 23:16 Lymphocytes # (Manual) 4.9 K/mm3 (1.2-5.4) 05/06/20 23:16 Abs React Lymphs (Man) 0.0 K/mm3 05/06/20 23:16 Monocytes # (Manual) 0.5 K/mm3 (0.0-0.8) 05/06/20 23:16 Eosinophils # (Manual) 0.0 K/mm3 (0.0-0.4) 05/06/20 23:16 Basophils # (Manual) 0.0 K/mm3 (0.0-0.1) 05/06/20 23:16 Metamyelocytes # 0.0 K/mm3 05/06/20 23:16 Myelocytes # 0.0 K/mm3 05/06/20 23:16 Promyelocytes # 0.0 K/mm3 05/06/20 23:16 Blast Cells # 0.0 K/mm3 05/06/20 23:16 WBC Morphology Not Reportable 05/06/20 23:16 Hypersegmented Neuts Not Reportable 05/06/20 23:16 Hyposegmented Neuts Not Reportable 05/06/20 23:16 Hypogranular Neuts Not Reportable 05/06/20 23:16 Smudge Cells Not Reportable 05/06/20 23:16 Toxic Granulation Not Reportable 05/06/20 23:16 Toxic Vacuolation Not Reportable 05/06/20 23:16 Dohle Bodies Not Reportable 05/06/20 23:16 Pelger-Huet Anomaly Not Reportable 05/06/20 23:16 Rachel Rods Not Reportable 05/06/20 23:16 Platelet Estimate Consistent w auto 05/06/20 23:16 Clumped Platelets Not Reportable 05/06/20 23:16 Plt Clumps, EDTA Not Reportable 05/06/20 23:16 Large Platelets Not Reportable 05/06/20 23:16 Giant Platelets Not Reportable 05/06/20 23:16 Platelet Satelliting Not Reportable 05/06/20 23:16 Plt Morphology Comment Not Reportable 05/06/20 23:16 RBC Morphology Not Reportable 05/06/20 23:16 Dimorphic RBCs Not Reportable 05/06/20 23:16 Polychromasia Not Reportable 05/06/20 23:16 Hypochromasia Not Reportable 05/06/20 23:16 Poikilocytosis Not Reportable 05/06/20 23:16 Anisocytosis Not Reportable 05/06/20 23:16 Microcytosis Not Reportable 05/06/20 23:16 Macrocytosis Not Reportable 05/06/20 23:16 Spherocytes Not Reportable 05/06/20 23:16 Pappenheimer Bodies Not Reportable 05/06/20 23:16 Sickle Cells Not Reportable 05/06/20 23:16 Target Cells Not Reportable 05/06/20 23:16 Tear Drop Cells Not Reportable 05/06/20 23:16 Ovalocytes Not Reportable 05/06/20 23:16 Helmet Cells Not Reportable 05/06/20 23:16 Ho-Bramwell Bodies Not Reportable 05/06/20 23:16 [place] Rings Not Reportable 05/06/20 23:16 [place] Cells Not Reportable 05/06/20 23:16 Bite Cells Not Reportable 05/06/20 23:16 Crenated Cell Not Reportable 05/06/20 23:16 Elliptocytes Not Reportable 05/06/20 23:16 Acanthocytes (Spur) Not Reportable 05/06/20 23:16 Rouleaux Not Reportable 05/06/20 23:16 Hemoglobin C Crystals Not Reportable 05/06/20 23:16 Schistocytes Not Reportable 05/06/20 23:16 Malaria parasites Not Reportable 05/06/20 23:16 Stephen Bodies Not Reportable 05/06/20 23:16 Hem Pathologist Commnt No 05/06/20 23:16 Sodium 134 mmol/L (137-145) L 05/08/20 04:28 Potassium 3.8 mmol/L (3.6-5.0) 05/08/20 04:28 Chloride 101.3 mmol/L (98-107) 05/08/20 04:28 Carbon Dioxide 18 mmol/L (22-30) L 05/08/20 04:28 Anion Gap 19 mmol/L 05/08/20 04:28 BUN 4 mg/dL (7-17) L 05/08/20 04:28 Creatinine 0.7 mg/dL (0.6-1.2) 05/08/20 04:28 Estimated GFR > 60 ml/min 05/08/20 04:28 BUN/Creatinine Ratio 6 % 05/08/20 04:28 Glucose 203 mg/dL (65-100) H 05/08/20 04:28 POC Glucose 190 mg/dL (70-105) H 05/08/20 11:48 Hemoglobin A1c 12.6 % (4-6) H 05/07/20 04:28 Calcium 8.5 mg/dL (8.4-10.2) 05/08/20 04:28 Total Bilirubin 0.40 mg/dL (0.1-1.2) 05/08/20 04:28 Direct Bilirubin < 0.2 mg/dL (0-0.2) 05/08/20 04:28 Indirect Bilirubin 0.2 mg/dL 05/08/20 04:28 AST 12 units/L (5-40) 05/08/20 04:28 ALT 14 units/L (7-56) 05/08/20 04:28 Alkaline Phosphatase 125 units/L (35-129) 05/08/20 04:28 Total Protein 6.8 g/dL (6.3-8.2) 05/08/20 04:28 Albumin 3.9 g/dL (3.9-5) 05/08/20 04:28 Albumin/Globulin Ratio 1.3 % 05/08/20 04:28 Triglycerides 91 mg/dL (2-149) 05/07/20 04:28 Cholesterol 266 mg/dL (50-199) H 05/07/20 04:28 LDL Cholesterol Direct 196 mg/dL (50-130) H 05/07/20 04:28 HDL Cholesterol 64 mg/dL (40-59) H 05/07/20 04:28 Cholesterol/HDL Ratio 4.15 % 05/07/20 04:28 Lipase 22 units/L (13-60) 05/06/20 23:16 HCG, Qual Negative (Negative) 05/06/20 23:16 Urine Color Yellow (Yellow) 05/06/20 23:27 Urine Turbidity Clear (Clear) 05/06/20 23:27 Urine pH 6.0 (5.0-7.0) 05/06/20 23:27 Ur Specific [facility] 1.036 (1.003-1.030) H 05/06/20 23:27 Urine Protein 100 mg/dl mg/dL (Negative) 05/06/20 23:27 Urine Glucose (UA) >=500 mg/dL (Negative) 05/06/20 23:27 Urine Ketones 80 mg/dL (Negative) 05/06/20 23:27 Urine Blood Sm (Negative) 05/06/20 23:27 Urine Nitrite Neg (Negative) 05/06/20 23:27 Urine Bilirubin Neg (Negative) 05/06/20 23:27 Urine Urobilinogen < 2.0 mg/dL (<2.0) 05/06/20 23:27 Ur Leukocyte Esterase Tr (Negative) 05/06/20 23:27 Urine WBC (Auto) 8.0 /HPF (0.0-6.0) H 05/06/20 23:27 Urine RBC (Auto) 2.0 /HPF (0.0-6.0) 05/06/20 23:27 U Epithel Cells (Auto) 1.0 /HPF (0-13.0) 05/06/20 23:27 Microbiology: Microbiology 05/07/20 03:45 Peripheral/Venous Blood Culture - Preliminary NO GROWTH AFTER 24 HOURS 05/07/20 04:28 Peripheral/Venous Blood Culture - Preliminary NO GROWTH AFTER 24 HOURS Mancini/IV: Voiding Method Toilet IV Catheter Type [Right Peripheral IV Antecubital] Active Medications - Current Medications Current Medications: Generic Name Dose Route Start Last Admin Trade Name Freq PRN Reason Stop Dose Admin Acetaminophen 650 mg 05/07/20 02:43 Tylenol PO Q4H PRN Pain MILD(1-3)/Fever >100.5/TRONCOSO Al Hydrox/Mg Hydrox/Simethicone 30 ml 05/07/20 02:43 Alum-Mag Hydrox-Simeth 388-316-28xx/5ml PO Q4H PRN Indigestion Alprazolam 0.25 mg 05/07/20 06:45 Xanax PO Q8H PRN Anxiety Dextrose 50 ml 05/07/20 16:27 D50w (25gm) Syringe IV Q30MIN PRN Hypoglycemia Protocol Famotidine 20 mg 05/07/20 10:00 05/08/20 10:13 Pepcid IV 20 mg BID VIV Administration Hydromorphone HCl 0.5 mg 05/08/20 11:20 Dilaudid IV Q4H PRN Pain , Severe (7-10) Piperacillin Sod/Tazobactam Sod 3.375 gm in 50 mls @ 100 mls/hr 05/07/20 14:00 05/08/20 05:37 Zosyn/Ns 3.375gm/50ml IV 100 mls/hr Q8HR VIV Administration Protocol Insulin Human Regular 0 unit 05/07/20 16:30 05/08/20 08:28 Humulin R SUB-Q 2 unit ACHS VIV Administration Protocol Labetalol HCl 10 mg 05/07/20 02:35 Labetalol IV Q6HR PRN Hypertension Metoclopramide HCl 10 mg 05/07/20 02:43 Reglan IV Q6H PRN Nausea And Vomiting Metoprolol Succinate 50 mg 05/08/20 10:00 05/08/20 10:12 Metoprolol Xl PO 50 mg DAILY VIV Administration Ondansetron HCl 4 mg 05/07/20 02:43 Zofran IV Q8H PRN Nausea And Vomiting Ondansetron HCl 4 mg 05/07/20 13:57 Zofran IV ONCE PRN Nausea And Vomiting Oxycodone/Acetaminophen 1 tab 05/08/20 11:20 Percocet 5/325 PO Q6H PRN Pain, Moderate (4-6) Oxymetazoline HCl 2 spray 05/07/20 11:00 05/07/20 11:31 Vicks Sinex NS 2 spray Q12H PRN Administration Nasal Congestion Senna 8.6 mg 05/07/20 02:43 Senokot PO Q12HR PRN Constipation Sodium Chloride 10 ml 05/07/20 10:00 05/08/20 10:14 Sodium Chloride Flush Syringe 10 Ml IV 10 ml BID VIV Administration Sodium Chloride 10 ml 05/07/20 02:43 Sodium Chloride Flush Syringe 10 Ml IV PRN PRN LINE FLUSH Trazodone HCl 50 mg 05/07/20 22:00 05/07/20 21:00 Desyrel PO 50 mg QHS VIV Administration Nutrition/Malnutrition Assess - Dietary Evaluation Nutrition/Malnutrition Findings: Nutrition Notes Start: 05/08/20 11:18 Freq: Status: Active Protocol: Document 05/08/20 11:18 EN (Rec: 05/08/20 11:46 EN [email or web address]) Co-Sign 05/08/20 11:18 LM Nutrition Notes Need for Assessment generated from: Education Initial or Follow up Assessment Current Diagnosis Diabetes,Hypertension Current Diet Diabetic clear liquids Labs/Tests Na 134, BUN 4, POC Glu 233, A1C 12.6 Pertinent Medications Humulin 2 unit, Piperacillin/ Tazobactam 3.375 Zosyn/Ns 3. 375 gm/50ml Height 5 ft Weight 118.4 kg Usual Body Weight 118 kg [place] Body Weight (kg) 45.45 BMI 51.0 Intake Prior to Admission Good Weight Status Morbidly Obese Subjective/Other Information RD consult for newly onset diabetes diet education. Pt reports eating well [employer]. Pt reports gallbladder removal in 2017. Pt states that she feels discomfort during her first meal of every day and that it quickly resolves. Pt denies N/V/D and states that her vomiting from thursday has resolved. Burn Absent Trauma Absent GI Symptoms None Food Allergy No Current % PO Negligible Minimum of two criteria No physical signs of malnutrition #2 Nutrition Diagnosis Food and nutrition-related knowledge deficit Etiology New onset DM As Evidenced by Signs and Symptoms Pt verbalized request for Consistent CHO handout #1 Nutrition Diagnosis Inadequate energy intake Etiology laparoscopic appendectomy As Evidenced by Signs and Symptoms diabetic clearn liquid diet order Is patient on ventilator? No Is Patient Ambulatory and/or Out of Bed Yes REE[facility]OOB) [ 2366.650 [id number]] Kcal/Kg value to use for calculation 16 Approximate Energy Requirements Using 1894 kcal/Kg Calculation Used for Recommendations Kcal/kg Additional Notes Protein: 0.8-1.0 g/kg (66-82g) Fluid: 1 ml/kcal Nutrition Intervention Change Diet Order: Continue diabetic/consistent cho diet, advance texture as advised by MD Goal #1 Meet 75% of energy and protein needs Anticipated Discharge Needs: Cardiac/Consistent CHO diet Follow-Up By: 05/10/20 Additional Comments F/u for diet advancement, intakes and possible education questions <RADAH CANTU - Last Filed: 05/08/20 19:15> History Interval history: Agree with above. Add Flagyl for surgical prophylaxis. One time for discharge with Levaquin 500 mg daily for 7 days and Flagyl 500 mg twice daily for 7 days. Pain medications changed back to Dilaudid for today. Hospitalist Physical - Constitutional Vitals: Temp Pulse Resp BP Pulse Ox 98.3 F 88 21 145/83 99 05/08/20 07:26 05/08/20 18:28 05/08/20 10:00 05/08/20 10:12 05/08/20 07:26 Results - Labs CBC & Chem 7: 05/08/20 04:28 05/08/20 04:28 Labs: Laboratory Last Values WBC 8.8 K/mm3 (4.5-11.0) 05/08/20 04:28 RBC 4.52 M/mm3 (3.65-5.03) 05/08/20 04:28 Hgb 13.5 gm/dl (10.1-14.3) 05/08/20 04:28 Hct 40.6 % (30.3-42.9) 05/08/20 04:28 MCV 90 fl (79-97) 05/08/20 04:28 MCH 30 pg (28-32) 05/08/20 04:28 MCHC 33 % (30-34) 05/08/20 04:28 RDW 15.3 % (13.2-15.2) H 05/08/20 04:28 Plt Count 185 K/mm3 (140-440) 05/08/20 04:28 Lymph % (Auto) 28.1 % (13.4-35.0) 05/08/20 04:28 [place] % (Auto) 9.0 % (0.0-7.3) H 05/08/20 04:28 Eos % (Auto) 0.1 % (0.0-4.3) 05/08/20 04:28 Baso % (Auto) 0.4 % (0.0-1.8) 05/08/20 04:28 Lymph # (Auto) 2.5 K/mm3 (1.2-5.4) 05/08/20 04:28 [place] # (Auto) 0.8 K/mm3 (0.0-0.8) 05/08/20 04:28 Eos # (Auto) 0.0 K/mm3 (0.0-0.4) 05/08/20 04:28 Baso # (Auto) 0.0 K/mm3 (0.0-0.1) 05/08/20 04:28 Add Manual Diff Complete 05/06/20 23:16 Total Counted 100 05/06/20 23:16 Seg Neutrophils % 62.4 % (40.0-70.0) 05/08/20 04:28 Seg Neuts % (Manual) 58.0 % (40.0-70.0) 05/06/20 23:16 Band Neutrophils % 0 % 05/06/20 23:16 Lymphocytes % (Manual) 38.0 % (13.4-35.0) H 05/06/20 23:16 Reactive Lymphs % (Man) 0 % 05/06/20 23:16 Monocytes % (Manual) 4.0 % (0.0-7.3) 05/06/20 23:16 Eosinophils % (Manual) 0 % (0.0-4.3) 05/06/20 23:16 Basophils % (Manual) 0 % (0.0-1.8) 05/06/20 23:16 Metamyelocytes % 0 % 05/06/20 23:16 Myelocytes % 0 % 05/06/20 23:16 Promyelocytes % 0 % 05/06/20 23:16 Blast Cells % 0 % 05/06/20 23:16 Nucleated RBC % Not Reportable 05/06/20 23:16 Seg Neutrophils # 5.5 K/mm3 (1.8-7.7) 05/08/20 04:28 Seg Neutrophils # Man 7.5 K/mm3 (1.8-7.7) 05/06/20 23:16 Band Neutrophils # 0.0 K/mm3 05/06/20 23:16 Lymphocytes # (Manual) 4.9 K/mm3 (1.2-5.4) 05/06/20 23:16 Abs React Lymphs (Man) 0.0 K/mm3 05/06/20 23:16 Monocytes # (Manual) 0.5 K/mm3 (0.0-0.8) 05/06/20 23:16 Eosinophils # (Manual) 0.0 K/mm3 (0.0-0.4) 05/06/20 23:16 Basophils # (Manual) 0.0 K/mm3 (0.0-0.1) 05/06/20 23:16 Metamyelocytes # 0.0 K/mm3 05/06/20 23:16 Myelocytes # 0.0 K/mm3 05/06/20 23:16 Promyelocytes # 0.0 K/mm3 05/06/20 23:16 Blast Cells # 0.0 K/mm3 05/06/20 23:16 WBC Morphology Not Reportable 05/06/20 23:16 Hypersegmented Neuts Not Reportable 05/06/20 23:16 Hyposegmented Neuts Not Reportable 05/06/20 23:16 Hypogranular Neuts Not Reportable 05/06/20 23:16 Smudge Cells Not Reportable 05/06/20 23:16 Toxic Granulation Not Reportable 05/06/20 23:16 Toxic Vacuolation Not Reportable 05/06/20 23:16 Dohle Bodies Not Reportable 05/06/20 23:16 Pelger-Huet Anomaly Not Reportable 05/06/20 23:16 Rachel Rods Not Reportable 05/06/20 23:16 Platelet Estimate Consistent w auto 05/06/20 23:16 Clumped Platelets Not Reportable 05/06/20 23:16 Plt Clumps, EDTA Not Reportable 05/06/20 23:16 Large Platelets Not Reportable 05/06/20 23:16 Giant Platelets Not Reportable 05/06/20 23:16 Platelet Satelliting Not Reportable 05/06/20 23:16 Plt Morphology Comment Not Reportable 05/06/20 23:16 RBC Morphology Not Reportable 05/06/20 23:16 Dimorphic RBCs Not Reportable 05/06/20 23:16 Polychromasia Not Reportable 05/06/20 23:16 Hypochromasia Not Reportable 05/06/20 23:16 Poikilocytosis Not Reportable 05/06/20 23:16 Anisocytosis Not Reportable 05/06/20 23:16 Microcytosis Not Reportable 05/06/20 23:16 Macrocytosis Not Reportable 05/06/20 23:16 Spherocytes Not Reportable 05/06/20 23:16 Pappenheimer Bodies Not Reportable 05/06/20 23:16 Sickle Cells Not Reportable 05/06/20 23:16 Target Cells Not Reportable 05/06/20 23:16 Tear Drop Cells Not Reportable 05/06/20 23:16 Ovalocytes Not Reportable 05/06/20 23:16 Helmet Cells Not Reportable 05/06/20 23:16 Ho-Bramwell Bodies Not Reportable 05/06/20 23:16 [place] Rings Not Reportable 05/06/20 23:16 [place] Cells Not Reportable 05/06/20 23:16 Bite Cells Not Reportable 05/06/20 23:16 Crenated Cell Not Reportable 05/06/20 23:16 Elliptocytes Not Reportable 05/06/20 23:16 Acanthocytes (Spur) Not Reportable 05/06/20 23:16 Rouleaux Not Reportable 05/06/20 23:16 Hemoglobin C Crystals Not Reportable 05/06/20 23:16 Schistocytes Not Reportable 05/06/20 23:16 Malaria parasites Not Reportable 05/06/20 23:16 Stephen Bodies Not Reportable 05/06/20 23:16 Hem Pathologist Commnt No 05/06/20 23:16 Sodium 134 mmol/L (137-145) L 05/08/20 04:28 Potassium 3.8 mmol/L (3.6-5.0) 05/08/20 04:28 Chloride 101.3 mmol/L (98-107) 05/08/20 04:28 Carbon Dioxide 18 mmol/L (22-30) L 05/08/20 04:28 Anion Gap 19 mmol/L 05/08/20 04:28 BUN 4 mg/dL (7-17) L 05/08/20 04:28 Creatinine 0.7 mg/dL (0.6-1.2) 05/08/20 04:28 Estimated GFR > 60 ml/min 05/08/20 04:28 BUN/Creatinine Ratio 6 % 05/08/20 04:28 Glucose 203 mg/dL (65-100) H 05/08/20 04:28 POC Glucose 240 mg/dL (70-105) H 05/08/20 17:19 Hemoglobin A1c 12.6 % (4-6) H 05/07/20 04:28 Calcium 8.5 mg/dL (8.4-10.2) 05/08/20 04:28 Total Bilirubin 0.40 mg/dL (0.1-1.2) 05/08/20 04:28 Direct Bilirubin < 0.2 mg/dL (0-0.2) 05/08/20 04:28 Indirect Bilirubin 0.2 mg/dL 05/08/20 04:28 AST 12 units/L (5-40) 05/08/20 04:28 ALT 14 units/L (7-56) 05/08/20 04:28 Alkaline Phosphatase 125 units/L (35-129) 05/08/20 04:28 Total Protein 6.8 g/dL (6.3-8.2) 05/08/20 04:28 Albumin 3.9 g/dL (3.9-5) 05/08/20 04:28 Albumin/Globulin Ratio 1.3 % 05/08/20 04:28 Triglycerides 91 mg/dL (2-149) 05/07/20 04:28 Cholesterol 266 mg/dL (50-199) H 05/07/20 04:28 LDL Cholesterol Direct 196 mg/dL (50-130) H 05/07/20 04:28 HDL Cholesterol 64 mg/dL (40-59) H 05/07/20 04:28 Cholesterol/HDL Ratio 4.15 % 05/07/20 04:28 Lipase 22 units/L (13-60) 05/06/20 23:16 HCG, Qual Negative (Negative) 05/06/20 23:16 Urine Color Yellow (Yellow) 05/06/20 23: Urine Turbidity Clear (Clear) 05/06/20 23: Urine pH 6.0 (5.0-7.0) 05/06/20 23: Ur Specific [facility] 1.036 (1.003-1.030) H 05/06/20 23: Urine Protein 100 mg/dl mg/dL (Negative) 05/06/20 23: Urine Glucose (UA) >=500 mg/dL (Negative) 05/06/20 23: Urine Ketones 80 mg/dL (Negative) 05/06/20 23: Urine Blood Sm (Negative) 05/06/20: Urine Nitrite Neg (Negative) 05/06/20 23: Urine Bilirubin Neg (Negative) 05/06/20 23: Urine Urobilinogen < 2.0 mg/dL (<2.0) 05/06/20 23: Ur Leukocyte Esterase Tr (Negative) 05/06/20 23: Urine WBC (Auto) 8.0 /HPF (0.0-6.0) H 05/06/20 23: Urine RBC (Auto) 2.0 /HPF (0.0-6.0) 05/06/20 23: U Epithel Cells (Auto) 1.0 /HPF (0-13.0) 05/06/20 23:27 Microbiology: Microbiology 05/07/20 Unknown Urine,Clean Catch Urine Culture - Preliminary 05/07/20 03:45 Peripheral/Venous Blood Culture - Preliminary NO GROWTH AFTER 24 HOURS 05/07/20 04:28 Peripheral/Venous Blood Culture - Preliminary NO GROWTH AFTER 24 HOURS Mancini/IV: Voiding Method Toilet IV Catheter Type [Right Peripheral IV Antecubital] Active Medications - Current Medications Current Medications: Generic Name Dose Route Start Last Admin Trade Name Freq PRN Reason Stop Dose Admin Acetaminophen 650 mg 05/07/20 02:43 Tylenol PO Q4H PRN Pain MILD(1-3)/Fever >100.5/TRONCOSO Al Hydrox/Mg Hydrox/Simethicone 30 ml 05/07/20 02:43 Alum-Mag Hydrox-Simeth [id number]/5ml PO Q4H PRN Indigestion Alprazolam 0.25 mg 05/07/20 06:45 Xanax PO Q8H PRN Anxiety Atorvastatin Calcium 10 mg 05/08/20 22:00 Atorvastatin PO QHS VIV Dextrose 50 ml 05/07/20 16:27 D50w (25gm) Syringe IV Q30MIN PRN Hypoglycemia Protocol Famotidine 20 mg 05/07/20 10:00 05/08/20 10:13 Pepcid IV 20 mg BID VIV Administration Fluconazole 200 mg 05/08/20 15:00 05/08/20 14:17 Diflucan PO 200 mg QDAY VIV Administration Hydromorphone HCl 0.5 mg 05/08/20 11:20 05/08/20 17:52 Dilaudid IV 0.5 mg Q4H PRN Administration Pain , Severe (7-10) Piperacillin Sod/Tazobactam Sod 3.375 gm in 50 mls @ 100 mls/hr 05/07/20 14:00 05/08/20 14:00 Zosyn/Ns 3.375gm/50ml IV 100 mls/hr Q8HR VIV Administration Protocol Insulin Human Regular 0 unit 05/07/20 16:30 05/08/20 17:50 Humulin R SUB-Q 4 unit ACHS VIV Administration Protocol Labetalol HCl 10 mg 05/07/20 02:35 Labetalol IV Q6HR PRN Hypertension Metoclopramide HCl 10 mg 05/07/20 02:43 Reglan IV Q6H PRN Nausea And Vomiting Metoprolol Succinate 50 mg 05/08/20 10:00 05/08/20 10:12 Metoprolol Xl PO 50 mg DAILY VIV Administration Ondansetron HCl 4 mg 05/07/20 02:43 Zofran IV Q8H PRN Nausea And Vomiting Ondansetron HCl 4 mg 05/07/20 13:57 Zofran IV ONCE PRN Nausea And Vomiting Oxycodone/Acetaminophen 1 tab 05/08/20 11:20 Percocet 5/325 PO Q6H PRN Pain, Moderate (4-6) Oxymetazoline HCl 2 spray 05/07/20 11:00 05/07/20 11:31 Vicks Sinex NS 2 spray Q12H PRN Administration Nasal Congestion Senna 8.6 mg 05/07/20 02:43 Senokot PO Q12HR PRN Constipation Sodium Chloride 10 ml 05/07/20 10:00 05/08/20 10:14 Sodium Chloride Flush Syringe 10 Ml IV 10 ml BID VIV Administration Sodium Chloride 10 ml 05/07/20 02:43 Sodium Chloride Flush Syringe 10 Ml IV PRN PRN LINE FLUSH Trazodone HCl 50 mg 05/07/20 22:00 05/07/20 21:00 Desyrel PO 50 mg QHS VIV Administration Nutrition/Malnutrition Assess - Dietary Evaluation Nutrition/Malnutrition Findings: Nutrition Notes Start: 05/08/20 11:18 Freq: Status: Active Protocol: Document 05/08/20 11:18 EN (Rec: 05/08/20 11:46 EN [email or web address]) Co-Sign 05/08/20 11:18 LM Nutrition Notes Need for Assessment generated from: MD Order,Education Initial or Follow up Assessment Current Diagnosis Diabetes,Hypertension, Hyperlipidemia Other Pertinent Diagnosis acute appendicitis, bilateral nephrolithiasis Current Diet clear liquids Labs/Tests Na 134, BUN 4, POC Glu 233, A1C 12.6 Pertinent Medications Humulin 2 unit, Piperacillin/ Tazobactam 3.375 Zosyn/Ns 3. 375 gm/50ml Height 5 ft Weight 118.4 kg Usual Body Weight 118 kg [place] Body Weight (kg) 45.45 BMI 51.0 Intake Prior to Admission Good Weight change and time frame unsure if height is accurate Weight Status Morbidly Obese Subjective/Other Information RD consult for newly onset diabetes diet education. Pt reports eating well [employer]. Pt reports gallbladder removal in 2016. Pt states that she feels discomfort during her first meal of every day and that it quickly resolves. Pt denies N/V/D and states that her vomiting from thursday has resolved. 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 Education review and handout provided. Burn Absent Trauma Absent GI Symptoms None Food Allergy No Current % PO Negligible Minimum of two criteria No physical signs of malnutrition #2 Nutrition Diagnosis Food and nutrition-related knowledge deficit Etiology New onset DM As Evidenced by Signs and Symptoms Pt verbalized request for Consistent CHO handout, A1C 12 .6 and POC Glu 233 #1 Nutrition Diagnosis Inadequate energy intake Etiology laparoscopic appendectomy As Evidenced by Signs and Symptoms clearn liquid diet order Is patient on ventilator? No Is Patient Ambulatory and/or Out of Bed Yes REE-([facility]-ambulatory/OOB) [ 2366.650 NUTR.MSJOOB] Kcal/Kg value to use for calculation 16 Approximate Energy Requirements Using 1894 kcal/Kg Calculation Used for Recommendations Kcal/kg Additional Notes Protein: 0.8-1.0 g/kg AdBW (66 -82g) Fluid: 1 ml/kcal Nutrition Intervention Change Diet Order: Continue consistent CHO diet, advance texture as advised by MD Add Supplement/Snack (indicate name/kcal Ensure Clear BID /protein ) Provides kCal: 480 Provides Protein (gm) 16 Teaching Recipient Patient Learning Readiness Good Teaching Methods Discussion,Handout Response to Teaching Verbalize understanding Education Handouts Provided Consistent CHO/Diabetes Barriers to Learning No Barriers RD phone number provided Yes Patient aware of follow up options Yes Goal #1 Meet 75% of energy and protein needs Goal #2 Diet advancement from Cl liq to Consistent CHO diet Anticipated Discharge Needs: Cardiac/Consistent CHO diet Follow-Up By: 05/10/20 Additional Comments F/u for diet advancement, intakes, ONS tolerance and possible education questions
[2020-05-08] MEDS: HYDROmorphone 1 MG/1 ML INJ IV PRN ×3 (12:39→22:09)
[2020-05-08] MEDS: FLUCONAZOLE 200 MG TAB PO SCH (14:17)
--- NOTE | 2020-05-08 19:39 | Discharge Summary ---
Providers - Providers Date of Admission: 05/07/20 01:39 Date of discharge: 05/08/20 Attending physician: RADHA CANTU 05/07/20 Consult to Case Management [CONS] Routine Services Needed at Discharge: Envelope Addresser Notified:: case managment 05/07/20 01:15 Consult to Physician [CONS] Stat Comment: To consult on patient upon admission Consulting Provider: ARASELI RÍOS Physician Instructions: NPO; Abx; Hospitalist admission; NS Reason For Exam: Acute appendicitis 05/07/20 16:28 Consult to Dietitian/Nutrition [CONS] Routine Physician Instructions: Reason For Exam: Reason for Consult: Diet education Primary care physician: MUSSEL FARMER Hospitalization Reason for admission: Abdominal pain nausea and vomiting Condition: Good Pertinent studies: CT scan consistent with acute appendicitis. Hospital course: 29-year-old female with a history of hypertension diabetes presented to the ED with 3 days of nausea vomiting and abdominal pain. CT scan displayed acute appendicitis. Patient was brought in and started on empiric antibiotics hydrated and prepared for surgical intervention. Patient had lap appendectomy done after 24 hours of admission. Defervesced well did better. Improved pain was able to tolerate p.o. stable for discharge. Will discharge patient on Percocet as well as Levaquin for additional 7 days. Patient will need more aggressive control of diabetes. Will discharge home on Metformin 500 mg twice daily. Blood pressure optimal control. Follow-up with surgeon in 2 weeks and primary care physician in 7 days. Disposition: TO HOME OR SELFCARE - Discharge Diagnoses (1) Acute appendicitis Status: Acute Qualifiers: Acute appendicitis type: unspecified acute appendicitis type Qualified Code(s): K35.80 - Unspecified acute appendicitis Comment: Patient status post lap appendectomy stable for discharge. Pain control Percocet. (2) Diabetes mellitus Status: Acute Comment: Uncontrolled diabetes A1c was 12.5 prior to admission. Patient started on Metformin 500 twice daily and further titration to be done by primary care physician outpatient. (3) Hyperlipemia Status: Acute Comment: Patient to continue statin antilipid antiplatelet therapy. (4) Hyponatremia Status: Acute Comment: Resolved. (5) Hypertension Status: Chronic Comment: Fair control continue oral antihypertensive medications. (6) Morbid obesity with BMI of 50.0-59.9, adult Status: Chronic Comment: Decreased caloric intake increase exercise. Diabetic education. Core Measure Documentation - Palliative Care Palliative Care/ Comfort Measures: Not Applicable - Core Measures Any of the following diagnoses?: none Exam - Constitutional Vitals: Temp Pulse Resp BP Pulse Ox 98.3 F 88 21 145/83 99 05/08/20 07:26 05/08/20 18:28 05/08/20 10:00 05/08/20 10:12 05/08/20 07:26 General appearance: Present: no acute distress, well-nourished - EENT Eyes: Present: PERRL ENT: hearing intact, clear oral mucosa - Neck Neck: Present: supple, normal ROM - Respiratory Respiratory effort: normal Respiratory: bilateral: CTA - Cardiovascular Heart Sounds: Present: S1 & S2. Absent: rub, click - Extremities Extremities: pulses symmetrical, No edema Peripheral Pulses: within normal limits - Abdominal General gastrointestinal: Present: soft, tender, non-distended, normal bowel sounds, other (Tender with deep palpation bandage right side.) Female genitourinary: Present: normal - Integumentary Integumentary: Present: clear, warm, dry - Musculoskeletal Musculoskeletal: gait normal, strength equal bilaterally - Psychiatric Psychiatric: appropriate mood/affect, intact judgment & insight - Neurologic Neurologic: CNII-XII intact, moves all extremities Plan Activity: advance as tolerated, fall precautions Weight Bearing Status: Weight Bear as Tolerated Diet: low fat, diabetic, low carbohydrate Follow up with: PRIMARY CARE,MD [Primary Care Provider] - 3-5 Days Prescriptions: Antacid [Alum-Mag Hydrox-Simeth [id number]/5Ml] 30 ml PO Q4H PRN #20 oral.liqd PRN Reason: Indigestion AtorvaSTATin 10 mg PO QHS #30 tablet Fluconazole [Diflucan TAB] 200 mg PO QDAY #7 tablet metFORMIN [Glucophage] 500 mg PO BIDDIAB #60 tablet Metoprolol Xl [Metoprolol SUCCINATE ER TAB] 50 mg PO DAILY #30 oxyCODONE /ACETAMINOPHEN [Percocet 5/325 mg] 2 tab PO Q6H PRN #60 tablet PRN Reason: Pain, Moderate (4-6) Sennosides Tab [Senokot] 8.6 mg PO Q12HR PRN #7 tablet PRN Reason: Constipation ALPRAZolam [Xanax TAB] 0.25 mg PO Q8H PRN #30 tablet PRN Reason: Anxiety
[2020-05-08] MEDS: traZODone 50 MG TAB PO SCH (22:12)
[2020-05-09] MEDS: HYDROmorphone 1 MG/1 ML INJ IV PRN (02:59)
[2020-05-09 08:00] VITALS: BP 130/78
[2020-05-09] MEDS ORDERED: metFORMIN 500 MG TAB PO SCH (08:00)
[2020-05-09] MEDS: METOPROLOL SUCCINATE XL 50 MG TAB PO SCH (09:28)
[2020-05-09] MEDS: FAMOTIDINE 20 MG/2 ML INJ IV SCH (09:31)
[2020-05-09] MEDS: FLUCONAZOLE 200 MG TAB PO SCH (09:31)
[2020-05-09] MEDS: INSULIN REGULAR, HUMAN 100 UNIT/ML 3ML VIAL SUB-Q SCH (09:33)
[2020-05-09] MEDS ORDERED: levoFLOXacin 500 MG TAB PO SCH (10:00)
[2020-05-09] MEDS ORDERED: FAMOTIDINE 20 MG TAB PO SCH (22:00)
== END 2020-05-09 14:32 | disposition home or self-care (01) | DRG 342 ==
LOC: ED 22:02 → 3A 05-07 01:39 → 4A 05-07 19:01
PROVIDERS: ADMIT Internal Medicine; ATTEND Internal Medicine
PROC: 0DTJ4ZZ Resection of Appendix, Percutaneous Endoscopic Approach (ICD-10-PCS; principal; 2020-05-07)
DX: K35.80 Unspecified acute appendicitis (principal); E87.1 Hypo-osmolality and hyponatremia; Z68.43 Body mass index [BMI] 50.0-59.9, adult; R65.10 Systemic inflammatory response syndrome (SIRS) of non-infectious origin without acute organ dysfunction; N20.0 Calculus of kidney; I10 Essential (primary) hypertension; E66.01 Morbid (severe) obesity due to excess calories; Z71.3 Dietary counseling and surveillance; Z90.49 Acquired absence of other specified parts of digestive tract; K21.9 Gastro-esophageal reflux disease without esophagitis
CPT/HCPCS: 36415; 74177; 80048; 80053; 80061; 80076; 81001; 82962; 83036; 83690; 84703; 85007; 85025; 87040; 87086; 88304; G0378; A9270-GY; J0330; J1170; J1644; J1815; J2250; J2270; J2405; J2543; J2704; J2710; J7030; Q9967

== ENCOUNTER 2020-05-23 21:03 | Emergency (ER) | payer BC ==
[2020-05-23 23:11] LABS: Bilirubin,Urine NEG (Negative); Blood,Urine LG (Negative); Color,Urine Yellow (Yellow); Urobilinogen,Urine < 2.0 mg/dL (<2.0)
[2020-05-23 23:12] LABS: HCG Qualitative,Urine Negative (Negative); RBC,Urine > 182.0 /HPF (0.0-6.0); WBC,Urine > 182.0 /HPF (0.0-6.0)
[2020-05-24 01:24] VITALS: BP 173/101
--- NOTE | 2020-05-24 03:04 | Emergency Department Report ---
ED Male HPI - General Chief complaint: Urogenital-Female Stated complaint: URGE TO URINATE BLOOD IN URINE Time Seen by Provider: 05/24/20 01:54 Source: patient Mode of arrival: Ambulatory Limitations: No Limitations - History of Present Illness MD Complaint: dysuria -: Gradual Location: penis Severity: mild Quality: burning Consistency: constant Worsens with: urination blood in urine, dysuria. denies: nausea/vomiting, incontinence - Related Data Previous Rx's Medication Instructions Recorded Last Taken Type ALPRAZolam [Xanax TAB] 0.25 mg PO Q8H PRN #30 tablet 05/08/20 Unknown Rx Antacid [Alum-Mag Hydrox-Simeth 30 ml PO Q4H PRN #20 oral.liqd 05/08/20 Unknown Rx [id number]/5Ml] AtorvaSTATin 10 mg PO QHS #30 tablet 05/08/20 Unknown Rx Fluconazole [Diflucan TAB] 200 mg PO QDAY #7 tablet 05/08/20 Unknown Rx Metoprolol Xl [Metoprolol 50 mg PO DAILY #30 05/08/20 Unknown Rx SUCCINATE ER TAB] Oxymetazoline 0.05% [Vicks Sinex] 2 spray NS Q12H PRN bottle 05/08/20 Unknown Rx Sennosides Tab [Senokot] 8.6 mg PO Q12HR PRN #7 tablet 05/08/20 Unknown Rx metFORMIN [Glucophage] 500 mg PO BIDDIAB #60 tablet 05/08/20 Unknown Rx oxyCODONE /ACETAMINOPHEN [Percocet 1 tab PO Q6H PRN tablet 05/08/20 Unknown Rx 5/325 mg] oxyCODONE /ACETAMINOPHEN [Percocet 2 tab PO Q6H PRN #60 tablet 05/08/20 Unknown Rx 5/325 mg] traZODone [Desyrel] 50 mg PO QHS tablet 05/08/20 Unknown Rx Phenazopyridine [Pyridium] 200 mg PO TID #9 tab 05/24/20 Unknown Rx Sulfamethoxazole/Trimethoprim 1 each PO BID #20 tablet 05/24/20 Unknown Rx [Bactrim DS TAB] Allergies Allergy/AdvReac Type Severity Reaction Status Date / Time No Known Allergies Allergy Verified 07/04/18 10:12 ED Review of Systems ROS: Stated complaint: URGE TO URINATE BLOOD IN URINE Other details as noted in HPI Comment: All other systems reviewed and negative ED Past Medical Hx - Past Medical History Previous Medical History?: Yes Hx Hypertension: Yes Hx Diabetes: Yes Hx Renal Disease: Yes (Stones) Hx Psychiatric Treatment: (anxiety) Additional medical history: enlarged tonsils, Heart arrhythmia,. Morbid Obesity - Surgical History Hx Cholecystectomy: Yes - Social History Smoking Status: Never Smoker Substance Use Type: None - Medications Home Medications: Home Medications Medication Instructions Recorded Confirmed Last Taken Type ALPRAZolam [Xanax TAB] 0.25 mg PO Q8H PRN #30 tablet 05/08/20 Unknown Rx Antacid [Alum-Mag Hydrox-Simeth 30 ml PO Q4H PRN #20 oral.liqd 05/08/20 Unknown Rx [id number]/5Ml] AtorvaSTATin 10 mg PO QHS #30 tablet 05/08/20 Unknown Rx Fluconazole [Diflucan TAB] 200 mg PO QDAY #7 tablet 05/08/20 Unknown Rx Metoprolol Xl [Metoprolol 50 mg PO DAILY #30 05/08/20 Unknown Rx SUCCINATE ER TAB] Oxymetazoline 0.05% [Vicks Sinex] 2 spray NS Q12H PRN bottle 05/08/20 Unknown Rx Sennosides Tab [Senokot] 8.6 mg PO Q12HR PRN #7 tablet 05/08/20 Unknown Rx metFORMIN [Glucophage] 500 mg PO BIDDIAB #60 tablet 05/08/20 Unknown Rx oxyCODONE /ACETAMINOPHEN [Percocet 1 tab PO Q6H PRN tablet 05/08/20 Unknown Rx 5/325 mg] oxyCODONE /ACETAMINOPHEN [Percocet 2 tab PO Q6H PRN #60 tablet 05/08/20 Unknown Rx 5/325 mg] traZODone [Desyrel] 50 mg PO QHS tablet 05/08/20 Unknown Rx Phenazopyridine [Pyridium] 200 mg PO TID #9 tab 05/24/20 Unknown Rx Sulfamethoxazole/Trimethoprim 1 each PO BID #20 tablet 05/24/20 Unknown Rx [Bactrim DS TAB] ED Physical Exam - General Limitations: No Limitations General appearance: alert, in no apparent distress - Head Head exam: Present: atraumatic, normocephalic - Eye Eye exam: Present: normal appearance, PERRL, EOMI Pupils: Present: normal accommodation - ENT ENT exam: Present: mucous membranes moist - Neck Neck exam: Present: normal inspection, full ROM - Respiratory Respiratory exam: Present: normal lung sounds bilaterally. Absent: respiratory distress, wheezes, rales, chest wall tenderness, accessory muscle use - Cardiovascular Cardiovascular Exam: Present: regular rate, normal rhythm. Absent: bradycardia, tachycardia, systolic murmur, diastolic murmur, rubs, gallop - GI/Abdominal GI/Abdominal exam: Present: soft, tenderness, normal bowel sounds - Extremities Exam Extremities exam: Present: normal inspection, full ROM, normal capillary refill - Back Exam Back exam: Present: normal inspection. Absent: CVA tenderness (R), CVA tenderness (L), muscle spasm, paraspinal tenderness, vertebral tenderness - Neurological Exam Neurological exam: Present: alert, oriented X3, CN II-XII intact - Psychiatric Psychiatric exam: Present: normal affect, normal mood. Absent: anxious, flat affect - Skin Skin exam: Present: warm, dry, intact, normal color. Absent: rash, cyanosis, erythema, pallor, ecchymosis ED Course Vital Signs 05/23/20 22:42 Temperature 97.7 F Pulse Rate 109 H Respiratory 16 Rate Blood Pressure 173/101 O2 Sat by Pulse 98 Oximetry ED Medical Decision Making - Medical Decision Making This patient presents to the emergency department with symptoms consistent with acute uncomplicated cystitis. No systemic symptoms. Not septic. She is well- appearing. Low suspicion for acute pyelonephritis given the lack of fever, CVA tenderness, or systemic features. Low suspicion for for kidney stone or infected stone. Not in age range for and her history and and presentation are complicated. No no indications for labs or imaging at this time. Critical care attestation.: If time is entered above; I have spent that time in minutes in the direct care of this critically ill patient, excluding procedure time. ED Disposition Clinical Impression: UTI (urinary tract infection) Disposition: - TO HOME OR SELFCARE Is pt being admited?: No Does the pt Need Aspirin: No Condition: Stable Instructions: Urinary Tract Infection, Adult Prescriptions: Sulfamethoxazole/Trimethoprim [Bactrim DS TAB] 1 each PO BID #20 tablet Phenazopyridine [Pyridium] 200 mg PO TID #9 tab Referrals: PRIMARY CARE, [Primary Care Provider] - 3-5 Days SAMIRA RAWLS MD [Staff Physician] - 3-5 Days
== END 2020-05-24 03:10 | disposition home or self-care (01) ==
LOC: ED 21:03
DX: N39.0 Urinary tract infection, site not specified (principal); I10 Essential (primary) hypertension; E11.9 Type 2 diabetes mellitus without complications; F41.9 Anxiety disorder, unspecified; Z90.49 Acquired absence of other specified parts of digestive tract; Z79.899 Other long term (current) drug therapy
CPT/HCPCS: 81001; 81025

== ENCOUNTER 2020-11-17 10:06 | Emergency (ER) | payer BC ==
[2020-11-17] MEDS ORDERED: SODIUM CHLORIDE 0.9% 1000 ML 1,000 ML IV ONE (11:02)
[2020-11-17] MEDS ORDERED: ONDANSETRON 4 MG/2 ML INJ IV ONE ×2 (11:02→15:01)
--- NOTE | 2020-11-17 11:06 | Event Note ---
ED Screening Note Date of service: 11/17/20 Time: 11:04 ED Screening Note: This initial assessment/diagnostic orders/clinical plan/treatment(s) is/are subject to change based on patients health status, clinical progression and re- assessment by fellow clinical providers in the ED. Further treatment and workup at subsequent clinical providers discretion. Patient/guardian urged not to elope from the ED as their condition may be serious if not clinically assessed and managed. Initial orders include: This is a 30-year-old obese female presents to the emergency room with complaint of abdominal pain that started around 6 AM this morning the pain started in the center of her abdomen but now is localized to her left side. The pain is associated with nausea no vomiting. She denies fever and no urinary symptoms. Patient has a history diabetes and she reports having a her gallbladder and appendix removed. She states that she took 3 Tylenols this morning with no relief. She also states that this week she has been drinking alcohol a little more than she usually does but not excessively
[2020-11-17 11:54] LABS: Alanine Aminotransferase 18 units/L (7-56); Albumin 4.2 g/dL (3.9-5); Blood Urea Nitrogen 9 mg/dL (7-17); Calcium 8.9 mg/dL (8.4-10.2); Hemolysis Index 6
[2020-11-17 12:01] LABS: BUN/Creatinine Ratio 13
[2020-11-17 12:16] LABS: Basophils # (Auto) 0.1 K/mm3 (0.0-0.1); Basophils % (Auto) 0.7 % (0.0-1.8); Eosinophils # (Auto) 0.1 K/mm3 (0.0-0.4); Eosinophils % (Auto) 0.8 % (0.0-4.3); Hematocrit 41.5 % (30.3-42.9); Lymphocytes % (Auto) 32.5 % (13.4-35.0); Mean Corpuscular HGB Conc 34 % (30-34); Mean Corpuscular Volume 88 fl (79-97); Monocytes # (Auto) 0.7 K/mm3 (0.0-0.8); Monocytes % (Auto) 7.9 % (0.0-7.3); Platelet Count 268 K/mm3 (140-440); Red Blood Count 4.72 M/mm3 (3.65-5.03); Red Cell Distribution Width 14.8 % (13.2-15.2)
[2020-11-17] MEDS ORDERED: oxyCODONE /ACETAMINOPHEN 5-325MG TAB PO ONE ×2 (12:57→16:30)
[2020-11-17] MEDS ORDERED: ONDANSETRON 4 MG/2 ML INJ ONE (13:08)
[2020-11-17 14:06] LABS: Bacteria,Urine 3+ /HPF (Negative); Bilirubin,Urine NEG (Negative); Blood,Urine MOD (Negative); Color,Urine Yellow (Yellow); Mucus,Urine FEW /HPF; Urobilinogen,Urine < 2.0 mg/dL (<2.0)
[2020-11-17] MEDS ORDERED: MORPHINE 4 MG/1 ML INJ IV ONE ×2 (15:01→16:30)
[2020-11-17] MEDS ORDERED: KETOROLAC 30 MG/1 ML INJ IV ONE (15:01)
[2020-11-17] MEDS ORDERED: cefTRIAXone/NS 1 GM/50 ML 1 GM/50 ML BAG IV ONE (15:02)
--- NOTE | 2020-11-17 15:08 | Emergency Department Report ---
ED Back Pain/Injury HPI - General Chief Complaint: Abdominal Pain Stated Complaint: LEFT SIDE ABD PAIN Time Seen by Provider: 11/17/20 14:56 Source: patient Limitations: No Limitations - History of Present Illness Initial Comments: Chief complaint: "I am hurting so bad." HPI: This is a 30-year-old female with history of nephrolithiasis, hypertension, BMI 43, diabetes mellitus, hyperlipidemia who presents with sudden onset of severe left flank pain which began at 6 AM while asleep. Sharp 10 out of 10 pain without radiation. Persistent. Pain does not move change with movement. She has nausea. Tylenol did not provide any relief. A few months ago she had mild dysuria. MD Complaint: back pain -: Sudden, This morning (6 AM) Similar Symptoms Previously: No Place: home Severity: severe Severity scale (0 -10): 10 Quality: sharp Consistency: constant Improves With: none Worsens With: none Associated Symptoms: other (Nausea no vomiting) - Related Data Previous Rx's Medication Instructions Recorded Last Taken Type ALPRAZolam [Xanax TAB] 0.25 mg PO Q8H PRN #30 tablet 05/08/20 Unknown Rx Antacid [Alum-Mag Hydrox-Simeth 30 ml PO Q4H PRN #20 oral.liqd 05/08/20 Unknown Rx [id number]] AtorvaSTATin 10 mg PO QHS #30 tablet 05/08/20 Unknown Rx Fluconazole [Diflucan TAB] 200 mg PO QDAY #7 tablet 05/08/20 Unknown Rx Metoprolol Xl [Metoprolol 50 mg PO DAILY #30 05/08/20 Unknown Rx SUCCINATE ER TAB] Oxymetazoline 0.05% [Vicks Sinex] 2 spray NS Q12H PRN bottle 05/08/20 Unknown Rx Sennosides Tab [Senokot] 8.6 mg PO Q12HR PRN #7 tablet 05/08/20 Unknown Rx metFORMIN [Glucophage] 500 mg PO BIDDIAB #60 tablet 05/08/20 Unknown Rx oxyCODONE /ACETAMINOPHEN [Percocet 1 tab PO Q6H PRN tablet 05/08/20 Unknown Rx 5/325 mg] oxyCODONE /ACETAMINOPHEN [Percocet 2 tab PO Q6H PRN #60 tablet 05/08/20 Unknown Rx 5/325 mg] traZODone [Desyrel] 50 mg PO QHS tablet 05/08/20 Unknown Rx Phenazopyridine [Pyridium] 200 mg PO TID #9 tab 05/24/20 Unknown Rx Sulfamethoxazole/Trimethoprim 1 each PO BID #20 tablet 05/24/20 Unknown Rx [Bactrim DS TAB] HYDROcodone/APAP 5-325 [Lebo 1 each PO Q6HR PRN #15 tablet 11/17/20 Unknown Rx 5/325] Ondansetron [Zofran Odt] 4 mg PO Q8HR PRN #10 tab.rapdis 11/17/20 Unknown Rx Tamsulosin [Flomax] 0.4 mg PO QDAY 7 Days #7 cap 11/17/20 Unknown Rx cephALEXin [Keflex] 500 mg PO QID 7 Days #28 capsule 11/17/20 Unknown Rx oxyCODONE /ACETAMINOPHEN [Percocet 1 tab PO Q6HR PRN #15 tablet 11/17/20 Unknown Rx 5/325] Allergies Allergy/AdvReac Type Severity Reaction Status Date / Time No Known Allergies Allergy Verified 07/04/18 10:12 ED Review of Systems ROS: Stated complaint: LEFT SIDE ABD PAIN Other details as noted in HPI Comment: All other systems reviewed and negative Constitutional: denies: fever, malaise Respiratory: denies: cough Cardiovascular: denies: chest pain Gastrointestinal: nausea Musculoskeletal: back pain ED Past Medical Hx - Past Medical History Previous Medical History?: Yes Hx Hypertension: Yes Hx Diabetes: Yes Hx Renal Disease: Yes (Stones) Hx Psychiatric Treatment: (anxiety) Additional medical history: enlarged tonsils, Heart arrhythmia,. Morbid Obesity - Surgical History Past Surgical History?: Yes Hx Cholecystectomy: Yes Hx Appendectomy: Yes - Social History Smoking Status: Never Smoker Substance Use Type: Alcohol - Medications Home Medications: Home Medications Medication Instructions Recorded Confirmed Last Taken Type ALPRAZolam [Xanax TAB] 0.25 mg PO Q8H PRN #30 tablet 05/08/20 Unknown Rx Antacid [Alum-Mag Hydrox-Simeth 30 ml PO Q4H PRN #20 oral.liqd 05/08/20 Unknown Rx [id number]/[id number]] AtorvaSTATin 10 mg PO QHS #30 tablet 05/08/20 Unknown Rx Fluconazole [Diflucan TAB] 200 mg PO QDAY #7 tablet 05/08/20 Unknown Rx Metoprolol Xl [Metoprolol 50 mg PO DAILY #30 05/08/20 Unknown Rx SUCCINATE ER TAB] Oxymetazoline 0.05% [Vicks Sinex] 2 spray NS Q12H PRN bottle 05/08/20 Unknown Rx Sennosides Tab [Senokot] 8.6 mg PO Q12HR PRN #7 tablet 05/08/20 Unknown Rx metFORMIN [Glucophage] 500 mg PO BIDDIAB #60 tablet 05/08/20 Unknown Rx oxyCODONE /ACETAMINOPHEN [Percocet 1 tab PO Q6H PRN tablet 05/08/20 Unknown Rx 5/325 mg] oxyCODONE /ACETAMINOPHEN [Percocet 2 tab PO Q6H PRN #60 tablet 05/08/20 Unknown Rx 5/325 mg] traZODone [Desyrel] 50 mg PO QHS tablet 05/08/20 Unknown Rx Phenazopyridine [Pyridium] 200 mg PO TID #9 tab 05/24/20 Unknown Rx Sulfamethoxazole/Trimethoprim 1 each PO BID #20 tablet 05/24/20 Unknown Rx [Bactrim DS TAB] HYDROcodone/APAP 5-325 [Lebo 1 each PO Q6HR PRN #15 tablet 11/17/20 Unknown Rx 5/325] Ondansetron [Zofran Odt] 4 mg PO Q8HR PRN #10 tab.rapdis 11/17/20 Unknown Rx Tamsulosin [Flomax] 0.4 mg PO QDAY 7 Days #7 cap 11/17/20 Unknown Rx cephALEXin [Keflex] 500 mg PO QID 7 Days #28 capsule 11/17/20 Unknown Rx oxyCODONE /ACETAMINOPHEN [Percocet 1 tab PO Q6HR PRN #15 tablet 11/17/20 Unknown Rx 5/325] ED Physical Exam - General Limitations: No Limitations General appearance: alert, in no apparent distress, other (Appears in severe pain otherwise nontoxic) - Head Head exam: Present: atraumatic, normocephalic - Eye Eye exam: Present: normal appearance - ENT ENT exam: Present: mucous membranes moist - Neck Neck exam: Present: normal inspection, full ROM - Respiratory Respiratory exam: Present: normal lung sounds bilaterally. Absent: respiratory distress, wheezes, rales, rhonchi - Cardiovascular Cardiovascular Exam: Present: regular rate, normal rhythm, normal heart sounds. Absent: systolic murmur, diastolic murmur, rubs, gallop - GI/Abdominal GI/Abdominal exam: Present: soft, normal bowel sounds. Absent: distended, tenderness, guarding, rebound - Extremities Exam Extremities exam: Present: normal inspection - Back Exam Back exam: Present: full ROM. Absent: tenderness, CVA tenderness (R), CVA tenderness (L), muscle spasm, paraspinal tenderness, vertebral tenderness, rash noted - Neurological Exam Neurological exam: Present: alert, oriented X3 - Psychiatric Psychiatric exam: Present: normal affect, normal mood - Skin Skin exam: Present: warm, dry, intact, normal color. Absent: rash ED Course Vital Signs 11/17/20 11/17/20 11/17/20 10:44 13:16 14:16 Temperature 98.6 F Pulse Rate 113 H Respiratory 24 22 20 Rate Blood Pressure 197/127 O2 Sat by Pulse 100 Oximetry 11/17/20 11/17/20 11/17/20 15:04 15:26 15:28 Temperature Pulse Rate 117 H 122 H Respiratory 21 16 23 Rate Blood Pressure 176/96 176/96 O2 Sat by Pulse 100 100 Oximetry 11/17/20 11/17/20 11/17/20 15:30 15:46 16:00 Temperature Pulse Rate 122 H 116 H 117 H Respiratory 22 19 18 Rate Blood Pressure 176/96 190/119 155/84 O2 Sat by Pulse 100 100 100 Oximetry 11/17/20 11/17/20 11/17/20 16:16 16:30 16:46 Temperature Pulse Rate 122 H 122 H 119 H Respiratory 41 H 39 H 29 H Rate Blood Pressure 176/96 176/96 176/96 O2 Sat by Pulse 99 97 99 Oximetry 11/17/20 11/17/20 11/17/20 17:00 17:16 17:30 Temperature Pulse Rate 118 H 123 H 120 H Respiratory 36 H 26 H 15 Rate Blood Pressure 143/82 143/82 143/82 O2 Sat by Pulse 97 99 99 Oximetry 11/17/20 11/17/20 11/17/20 17:46 18:00 18:11 Temperature Pulse Rate 121 H 124 H Respiratory 36 H 16 18 Rate Blood Pressure 143/82 160/92 O2 Sat by Pulse 96 100 Oximetry 11/17/20 11/17/20 18:16 18:30 Temperature Pulse Rate 127 H 140 H Respiratory 19 24 Rate Blood Pressure 143/82 143/82 O2 Sat by Pulse 98 99 Oximetry - Reevaluation(s) Reevaluation #1: 11/17/20 19:05 Patient is pain-free after second doses of medication. 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 TECHNIQUE: Axial CT images were obtained through the abdomen and pelvis without IV contrast. All CT scans at this location are performed using CT dose reduction for ALARA by means of automated exposure control. COMPARISON: CT abdomen pelvis 05/07/2020 FINDINGS: LOWER CHEST: No significant abnormality. LIVER: No significant abnormality. GALLBLADDER: Surgically absent BILE DUCTS: No significant abnormality. PANCREAS: No significant abnormality. SPLEEN: No significant abnormality. ADRENALS: No significant abnormality. RIGHT KIDNEY and URETER: No significant abnormality. LEFT KIDNEY and URETER: Obstructing 4 mm left proximal ureteral stone with mild left hydronephrosis. Tiny nonobstructing 1 mm left intrarenal stone. STOMACH and SMALL BOWEL: No significant abnormality. COLON: No significant abnormality. APPENDIX: Surgically absent PERITONEUM: No free fluid. No free air. No fluid collection. LYMPH NODES: No significant adenopathy. AORTA and ARTERIES: No significant abnormality. IVC and VEINS: No significant abnormality. URINARY BLADDER: No significant abnormality. REPRODUCTIVE ORGANS: Intrauterine IUD, unchanged ADDITIONAL FINDINGS: None. SKELETAL SYSTEM: No significant abnormality. IMPRESSION: 1. Obstructing 4 mm left proximal ureteral stone with mild left hydronephrosis 2. Left nephrolithiasis Signer Name: Sal Ridley MD - Medical Decision Making 1. Renal colic due to 4 mm proximal ureteral stone. With ketorolac and morphine, patient is now pain-free. Without significant hydronephrosis or fever or additional signs of SIRS I do not suspect infected stone/pyonephrosis. Normal WBC. Normal kidney function. Prophylactically considering distal UTI, IV ceftriaxone provided in the ED. Rx: cephalexin, percocet, zofran, flomax, ibuprofen Referral to urology Patient understands return precautions especially fever, severe pain, persistent vomiting. 2. Known hx of sinus tachycardia, well-documented on previous ED encounters. Followed by vocational adviser. Patient did not take metoprolol this morning. Critical care attestation.: If time is entered above; I have spent that time in minutes in the direct care of this critically ill patient, excluding procedure time. ED Disposition Clinical Impression: Ureterolithiasis, Renal colic on left side Disposition: DC- TO HOME OR SELFCARE Is pt being admited?: No Does the pt Need Aspirin: No Condition: Stable Instructions: Renal Colic, [id number], Kidney Stones, [id number], Abdominal Pain (ED) Prescriptions: Tamsulosin [Flomax] 0.4 mg PO QDAY 7 Days #7 cap cephALEXin [Keflex] 500 mg PO QID 7 Days #28 capsule HYDROcodone/APAP 5-325 [Lebo 5/325] 1 each PO Q6HR PRN #15 tablet PRN Reason: Pain oxyCODONE /ACETAMINOPHEN [Percocet 5/325] 1 tab PO Q6HR PRN #15 tablet PRN Reason: Pain Ondansetron [Zofran Odt] 4 mg PO Q8HR PRN #10 tab.rapdis PRN Reason: Nausea Referrals: SHAY HOUSER MD [Staff Physician] - 3-5 Days
--- NOTE | 2020-11-17 15:44 | Cat Scan Report ---
CT ABDOMEN AND PELVIS WITHOUT CONTRAST INDICATION: left flank pain. TECHNIQUE: Axial CT images were obtained through the abdomen and pelvis without IV contrast. All CT scans at [facility] location are performed using CT dose reduction for ALARA by means of automated exposure control. COMPARISON: CT abdomen pelvis 05/07/2020 FINDINGS: LOWER CHEST: No significant abnormality. LIVER: No significant abnormality. GALLBLADDER: Surgically absent BILE DUCTS: No significant abnormality. PANCREAS: No significant abnormality. SPLEEN: No significant abnormality. ADRENALS: No significant abnormality. RIGHT KIDNEY and URETER: No significant abnormality. LEFT KIDNEY and URETER: Obstructing 4 mm left proximal ureteral stone with mild left hydronephrosis. Tiny nonobstructing 1 mm left intrarenal stone. STOMACH and SMALL BOWEL: No significant abnormality. COLON: No significant abnormality. APPENDIX: Surgically absent PERITONEUM: No free fluid. No free air. No fluid collection. LYMPH NODES: No significant adenopathy. AORTA and ARTERIES: No significant abnormality. IVC and VEINS: No significant abnormality. URINARY BLADDER: No significant abnormality. REPRODUCTIVE ORGANS: Intrauterine IUD, unchanged ADDITIONAL FINDINGS: None. SKELETAL SYSTEM: No significant abnormality. IMPRESSION: 1. Obstructing 4 mm left proximal ureteral stone with mild left hydronephrosis 2. Left nephrolithiasis Signer Name: Sal Ridley MD Signed: 11/17/2020 3:39 PM Workstation Name: [email or web address]
[2020-11-17] MEDS ORDERED: TAMSULOSIN 0.4 MG CAP PO ONE (16:29)
[2020-11-17] MEDS ORDERED: METOPROLOL TARTRATE 50 MG TAB PO ONE (18:55)
[2020-11-17 19:20] VITALS: BP 133/91
== END 2020-11-17 19:21 | disposition home or self-care (01) ==
LOC: ED 10:06
DX: N20.1 Calculus of ureter (principal); N23 Unspecified renal colic; I10 Essential (primary) hypertension; E11.9 Type 2 diabetes mellitus without complications; F41.9 Anxiety disorder, unspecified; Z90.49 Acquired absence of other specified parts of digestive tract; Z79.84 Long term (current) use of oral hypoglycemic drugs; Z79.899 Other long term (current) drug therapy
CPT/HCPCS: 36415; 74176; 80053; 81001; 82962; 83690; 84703; 85025; 96361; 96365; 96375; 96376; 99284; J0696; J1885; J2270; J2405; J7030